=== PATIENT | male | born 1945 | race Caucasian/White ===

== ENCOUNTER 2024-04-04 23:01 | Inpatient (IN) | payer OTHER, SELFPAY ==
[2024-04-04] VITALS (7 sets, daily range): BP systolic 104–171; BP diastolic 62–107; BMI 25.8; BMI 27.3
[2024-04-04 18:14] LABS: % Basophils 0.1 % (0-2); % Eosinophils 0.1 % (0-6); % Immature Granulocytes 0.4 % (0-0.5); % Lymphocytes 5.2 % (20.5-51.1); % Monocytes 12.5 % (1.7-9.3); % Neutrophils 81.7 % (42.2-75.2); Absolute Immature Granulocytes 0.1 10^3/uL (0-0.05); Absolute Lymphocytes 0.8 10^3/uL (1.2-3.4); Absolute Monocytes 1.9 10^3/uL (0.1-0.6); Absolute Neutrophils 12.7 10^3/uL (1.4-6.5); Hematocrit 44.5 % (39.0-52.0); Hemoglobin 15.2 g/dL (13.0-18.0); Mean Corp Hgb Conc. 34.2 g/dL (33.0-37.0); Mean Corpuscular Hgb 30.2 pg (27.0-31.0); Mean Corpuscular Volume 88.3 fL (80.0-94.0); Mean Platelet Volume 10.6 fL (7.4-10.4); Nucleated Red Blood Cells % 0 % (-); Platelet Count 240 10^3/uL (130-400); Red Blood Cell Count 5.04 10^6/uL (4.70-6.10); Red Cell Dist. Width 15.5 % (11.5-14.5); White Blood Cell Count 15.6 10^3/uL (4.8-10.8)
[2024-04-04 18:25] LABS: ALT (SGPT) 23 U/L (0-50); AST (SGOT) 31 U/L (17-59); Albumin 4.3 g/dl (3.5-5.0); Alkaline Phosphatase 164 U/L (38-126); Blood Urea Nitrogen 22 mg/dl (9-20); Calcium 9.8 mg/dl (8.4-10.2); Carbon Dioxide 25 mmol/L (22-30); Chloride 94 mmol/L (98-107); Estimated Creatinine Clearance 62 ml/min; Glucose 103 mg/dl (70-99); Potassium 3.2 mmol/L (3.5-5.1); Sodium 132 mmol/L (135-145); Total Bilirubin 2.9 mg/dl (0.2-1.3); eGFR > 60.00
[2024-04-04 18:36] LABS: Troponin I < 0.012 ng/ml
[2024-04-04] MEDS: KCL 40 MEQ PO (19:30)
[2024-04-04] MEDS: NSS 1000 IV (19:30)
[2024-04-04] MEDS: MAGNESIUM SULFATE 50 IV (19:31)
[2024-04-04 20:11] LABS: NT-proBNP 2840 pg/ml
--- NOTE | 2024-04-04 20:42 | ED.GENMED ---
History of Present Illness
<Agusto Jones PA-C - Last Filed: 04/06/24 09:08>
General
Chief Complaint: Fall
Time Seen by Provider: 04/04/24 18:29
Travel History
Have you had any contact with someone who has COVID-19?: No
Do you have any symptoms of coronavirus? Fever > 100 degrees, chills, cough, shortness of breath, sore throat, loss of taste or smell, muscle aches, or headache?: No
History of Present Illness
History of Present Illness:
79-year-old male with history of prior stroke, hypertension, hyperlipidemia, and paroxysmal atrial fibrillation status post Watchman device presents to the emergency department for evaluation after a fall in the shower. She states that he felt
dizzy after straining to try to have a bowel movement when he fell to the ground. He did strike the occiput on the ground but there was no loss of consciousness. Currently reports constipation for the past several days and abdominal discomfort.
Denies any recent fevers or chills. He has been compliant with his home medications.
Review of Systems
<Agusto Jones PA-C - Last Filed: 04/06/24 09:08>
Review of Systems
Allergies reviewed?: Yes
All Other Systems: ROS reviewed and negative except as documented in HPI and ROS
Phy Exam
<Agusto Jones PA-C - Last Filed: 04/06/24 09:08>
Physical Exam
Physical Exam:
GEN: Well appearing, NAD, WDWN
Eyes: PERRLA, EOMs intact, no scleral icterus
HENT: NCAT, oral mucosa moist, no JVD, no cervical adenopathy.
Lungs: CTAB, no wheezes, rales, rhonchi, normal chest wall excursion
Cardiac: RRR, no M/R/G, no peripheral edema. Radial pulses 2+ bilat
Abdomen: Mild suprapubic distention noted. Focal tenderness to the suprapubic region as well as the right upper quadrant
Neuro: AO x 3, no focal deficits to BUE/BLE, normal sensation throughout
MSK: No gross deformity or ecchymosis. No edema. No digital clubbing
Skin: No rashes, petechiae. Normal color, no pallor or jaundice.
Psych: Calm, cooperative, proper hygiene
Course
<Agusto Jones PA-C - Last Filed: 04/06/24 09:08>
Orders/Labs/Results
Orders:
Orders
04/04/24 17:59
EKG [Electrocardiogram (*1)] Urgent
Reason for Study: Tachycardia
04/04/24 18:00
EKG- Treatment ONCE
04/04/24 18:05
Complete Blood Count/With Diff Urgent
Comprehensive Metabolic Panel Urgent
Lipase Urgent
Comment: ADD ON
NT-proBNP Urgent
Troponin I Urgent
04/04/24 18:47
CT Head W/o Iv Contrast Urgent
Comment:
Reason For Exam: fall head injury
04/04/24 19:18
Potassium Chloride [KCl] 40 meq PO NOW STA
04/04/24 19:19
Magnesium Sulfate 2 Gram/50 ml [Magnesium Sulfate] 2 gram in 50 ml IV NOW
04/04/24 19:30
0.9% Sodium Chloride 1000 ml [Nss] 1,000 ml IV BOLUS
04/04/24 20:33
UA Reflex to Culture [Urinalysis Reflex To Culture] Urgent
Date Specimen was Collected: 04/04/24
Time Specimen was Collected: 20:31
04/04/24 20:34
CT Abd/Pel (IV only)-DH only Urgent
Comment:
Reason For Exam: abd pain, transaminitis, tachycardia
04/04/24 20:45
Magnesium Citrate [Citroma] 300 ml PO ONCE ONE
04/04/24 22:01
Piperacillin/Tazo 3.375 Gram [Zosyn] 3.375 gram in 50 ml IV NOW
04/04/24 22:32
Admit/Transfer Patient As Directed
Co-Sign Provider:
Level of Care: Inpatient admission
Assign to:: Telemetry
Physician / Group: sean
Diagnosis: cholecystitis
Reason for Telemetry: Arrhythmia
Date to Stop Telemetry: 04/07/24
Time to Stop Telemetry: 11:00
Reason for Hospitalization: cholecystitis
Expected length of stay greater than two midnights?: Yes
ELOS- Estimated Length of Stay in days: 3
I certify the patient meets the requirements for IP care: Yes
04/04/24 22:33
Code Status As Directed
Resuscitation Status: Do not resuscitate
Reached after discussion with pt or family/Healthcare POA: Yes
04/04/24 22:34
DNR Bracelet Application ONCE
04/04/24 22:42
Add On- LAB Stat
Tests Added?: lipase
04/04/24 23:53
Acetaminophen [Tylenol] 650 mg PO Q4HPRN PRN
Bisacodyl [Dulcolax] 10 mg RECTAL [id number] PRN
Docusate W/Senna [Senokot-S] 1 tablet PO BIDPRN PRN
HYDROmorphone [Dilaudid] 0.5 mg IV Q4HPRN PRN
Lactated Ringers [Lr] 1,000 ml IV 80 mls/hr
Metoprolol [Lopressor] 5 mg IV Q6HPRN PRN
Polyethylene Glycol Powder [Miralax] 17 grams PO DAILYPRN PRN
04/04/24 23:53
Consult Notification Routine
Specialty to Notify: Gastroenterology
Date consulting provider notified: 04/05/24
Time consulting provider notified: 07:18
Notified:: Provider
Comment: TT
GASTROINTESTINAL CONSULT Routine
Consulting Provider: Ayan Decker
Was physician already notified: No
Reason for consult: pancreatic mass
SURGICAL CONSULT Routine
Consulting Provider: Luis West
Was physician already notified: Yes
Vascular Surgery Consult Routine
Consulting Provider: Millie Lopez
Was physician already notified: Yes
Urinalysis Reflex To Culture Routine
Date Specimen was Collected: 04/05/24
Time Specimen was Collected: 04:53
Pneumatic Compression Sleeves As Directed
Type: Knee high
Vital Signs As Directed
Frequency: Per unit guidelines
DX Deep Vein Thrombosis Video Routine
04/05/24 04:00
Piperacillin/Tazo 3.375 Gram [Zosyn] 3.375 gram in 50 ml IV Q6H
04/05/24 Breakfast
NPO
Allow oral meds: Yes
Allow clear liquids: No
Physical Therapy Consult [Pt Eval And Treat] IN AM
Activity Level: As Tolerated
US Abdomen Complete/Upper IN AM
Comment:
Reason For Exam: abdominal pain
04/05/24 08:00
Aspirin Low Dose EC [Aspir Low (Enteric Coated)] 81 mg PO DAILY
Metoprolol [Lopressor] 50 mg PO BID
04/05/24 08:47
Complete Blood Count/No Diff IN AM
Comprehensive Metabolic Panel IN AM
04/05/24 18:00
Atorvastatin [Lipitor] 80 mg PO QPM
04/06/24 06:27
Complete Blood Count/No Diff IN AM
04/06/24 06:28
Comprehensive Metabolic Panel IN AM
04/07/24 06:00
Complete Blood Count/No Diff IN AM
Comprehensive Metabolic Panel IN AM
04/07/24 11:00
DC Protocol for Telemetry ONCE
04/08/24 06:00
Complete Blood Count/No Diff IN AM
Comprehensive Metabolic Panel IN AM
04/09/24 06:00
Complete Blood Count/No Diff IN AM
Comprehensive Metabolic Panel IN AM
Abnormal Lab Results
04/04/24
18:05
WBC 15.6 H 10^3/uL
(4.8-10.8)
RDW 15.5 H %
(11.5-14.5)
MPV 10.6 H fL
(7.4-10.4)
Abs Immat Gran (auto) 0.1 H 10^3/uL
(0-0.05)
Absolute Neuts (auto) 12.7 H 10^3/uL
(1.4-6.5)
Absolute Lymphs (auto) 0.8 L 10^3/uL
(1.2-3.4)
Absolute Monos (auto) 1.9 H 10^3/uL
(0.1-0.6)
Neutrophils % 81.7 H %
(42.2-75.2)
Lymphocytes % 5.2 L %
(20.5-51.1)
Monocytes % 12.5 H %
(1.7-9.3)
Sodium 132 L mmol/L
(135-145)
Potassium 3.2 L mmol/L
(3.5-5.1)
Chloride 94 L mmol/L
(98-107)
BUN 22 H mg/dl
(9-20)
Glucose 103 H mg/dl
(70-99)
Total Bilirubin 2.9 H mg/dl
(0.2-1.3)
Alkaline Phosphatase 164 H U/L
(38-126)
04/04/24 18:05
04/04/24 18:05
Vital Signs
Initial and Last Documented VS:
Initial Vital Signs
Temp Pulse Resp BP Pulse Ox
99.5 F 120 20 113/77 97
04/04/24 17:51 04/04/24 17:51 04/04/24 17:51 04/04/24 17:51 04/04/24 17:51
Last Documented Vital Signs
Temp Pulse Resp BP Pulse Ox
98 F 100 16 145/105 94
04/06/24 07:00 04/06/24 07:00 04/06/24 07:00 04/06/24 07:00 04/06/24 07:00
<LUIS ANGEL Sagastume - Last Filed: 04/04/24 22:05>
Orders/Labs/Results
Orders:
Orders
04/04/24 17:59
EKG [Electrocardiogram (*1)] Urgent
Reason for Study: Tachycardia
04/04/24 18:00
EKG- Treatment ONCE
04/04/24 18:05
Complete Blood Count/With Diff Urgent
Comprehensive Metabolic Panel Urgent
Lipase Urgent
Comment: ADD ON
NT-proBNP Urgent
Troponin I Urgent
04/04/24 18:47
CT Head W/o Iv Contrast Urgent
Comment:
Reason For Exam: fall head injury
04/04/24 19:18
Potassium Chloride [KCl] 40 meq PO NOW STA
04/04/24 19:19
Magnesium Sulfate 2 Gram/50 ml [Magnesium Sulfate] 2 gram in 50 ml IV NOW
04/04/24 19:30
0.9% Sodium Chloride 1000 ml [Nss] 1,000 ml IV BOLUS
04/04/24 20:33
UA Reflex to Culture [Urinalysis Reflex To Culture] Urgent
Date Specimen was Collected: 04/04/24
Time Specimen was Collected: 20:31
04/04/24 20:34
CT Abd/Pel (IV only)-DH only Urgent
Comment:
Reason For Exam: abd pain, transaminitis, tachycardia
04/04/24 20:45
Magnesium Citrate [Citroma] 300 ml PO ONCE ONE
04/04/24 22:01
Piperacillin/Tazo 3.375 Gram [Zosyn] 3.375 gram in 50 ml IV NOW
04/04/24 22:32
Admit/Transfer Patient As Directed
Co-Sign Provider:
Level of Care: Inpatient admission
Assign to:: Telemetry
Physician / Group: sean
Diagnosis: cholecystitis
Reason for Telemetry: Arrhythmia
Date to Stop Telemetry: 04/07/24
Time to Stop Telemetry: 11:00
Reason for Hospitalization: cholecystitis
Expected length of stay greater than two midnights?: Yes
ELOS- Estimated Length of Stay in days: 3
I certify the patient meets the requirements for IP care: Yes
04/04/24 22:33
Code Status As Directed
Resuscitation Status: Do not resuscitate
Reached after discussion with pt or family/Healthcare POA: Yes
04/04/24 22:34
DNR Bracelet Application ONCE
04/04/24 22:42
Add On- LAB Stat
Tests Added?: lipase
04/04/24 23:53
Acetaminophen [Tylenol] 650 mg PO Q4HPRN PRN
Bisacodyl [Dulcolax] 10 mg RECTAL [id number] PRN
Docusate W/Senna [Senokot-S] 1 tablet PO BIDPRN PRN
HYDROmorphone [Dilaudid] 0.5 mg IV Q4HPRN PRN
Lactated Ringers [Lr] 1,000 ml IV 80 mls/hr
Metoprolol [Lopressor] 5 mg IV Q6HPRN PRN
Polyethylene Glycol Powder [Miralax] 17 grams PO DAILYPRN PRN
04/04/24 23:53
Consult Notification Routine
Specialty to Notify: Gastroenterology
Date consulting provider notified: 04/05/24
Time consulting provider notified: 07:18
Notified:: Provider
Comment: TT
GASTROINTESTINAL CONSULT Routine
Consulting Provider: Ayan Decker
Was physician already notified: No
Reason for consult: pancreatic mass
SURGICAL CONSULT Routine
Consulting Provider: Luis West
Was physician already notified: Yes
Vascular Surgery Consult Routine
Consulting Provider: Millie Lopez
Was physician already notified: Yes
Urinalysis Reflex To Culture Routine
Date Specimen was Collected: 04/05/24
Time Specimen was Collected: 04:53
Pneumatic Compression Sleeves As Directed
Type: Knee high
Vital Signs As Directed
Frequency: Per unit guidelines
DX Deep Vein Thrombosis Video Routine
04/05/24 04:00
Piperacillin/Tazo 3.375 Gram [Zosyn] 3.375 gram in 50 ml IV Q6H
04/05/24 Breakfast
NPO
Allow oral meds: Yes
Allow clear liquids: No
Physical Therapy Consult [Pt Eval And Treat] IN AM
Activity Level: As Tolerated
US Abdomen Complete/Upper IN AM
Comment:
Reason For Exam: abdominal pain
04/05/24 08:00
Aspirin Low Dose EC [Aspir Low (Enteric Coated)] 81 mg PO DAILY
Metoprolol [Lopressor] 50 mg PO BID
04/05/24 08:47
Complete Blood Count/No Diff IN AM
Comprehensive Metabolic Panel IN AM
04/05/24 18:00
Atorvastatin [Lipitor] 80 mg PO QPM
04/06/24 06:27
Complete Blood Count/No Diff IN AM
04/06/24 06:28
Comprehensive Metabolic Panel IN AM
04/07/24 06:00
Complete Blood Count/No Diff IN AM
Comprehensive Metabolic Panel IN AM
04/07/24 11:00
DC Protocol for Telemetry ONCE
04/08/24 06:00
Complete Blood Count/No Diff IN AM
Comprehensive Metabolic Panel IN AM
04/09/24 06:00
Complete Blood Count/No Diff IN AM
Comprehensive Metabolic Panel IN AM
Abnormal Lab Results
04/04/24
18:05
WBC 15.6 H 10^3/uL
(4.8-10.8)
RDW 15.5 H %
(11.5-14.5)
MPV 10.6 H fL
(7.4-10.4)
Abs Immat Gran (auto) 0.1 H 10^3/uL
(0-0.05)
Absolute Neuts (auto) 12.7 H 10^3/uL
(1.4-6.5)
Absolute Lymphs (auto) 0.8 L 10^3/uL
(1.2-3.4)
Absolute Monos (auto) 1.9 H 10^3/uL
(0.1-0.6)
Neutrophils % 81.7 H %
(42.2-75.2)
Lymphocytes % 5.2 L %
(20.5-51.1)
Monocytes % 12.5 H %
(1.7-9.3)
Sodium 132 L mmol/L
(135-145)
Potassium 3.2 L mmol/L
(3.5-5.1)
Chloride 94 L mmol/L
(98-107)
BUN 22 H mg/dl
(9-20)
Glucose 103 H mg/dl
(70-99)
Total Bilirubin 2.9 H mg/dl
(0.2-1.3)
Alkaline Phosphatase 164 H U/L
(38-126)
04/04/24 18:05
04/04/24 18:05
Vital Signs
Initial and Last Documented VS:
Initial Vital Signs
Temp Pulse Resp BP Pulse Ox
99.5 F 120 20 113/77 97
04/04/24 17:51 04/04/24 17:51 04/04/24 17:51 04/04/24 17:51 04/04/24 17:51
Last Documented Vital Signs
Temp Pulse Resp BP Pulse Ox
98 F 100 16 145/105 94
04/06/24 07:00 04/06/24 07:00 04/06/24 07:00 04/06/24 07:00 04/06/24 07:00
<Agusto Jones PA-C - Last Filed: 04/06/24 09:08>
MDM/Problems Addressed
MDM/Problems Addressed:
79-year-old male presenting after a fall. His dizziness was likely vasovagal as he was trying to bear down to have a bowel movement. He has noted to be tachycardic in atrial fibrillation, not on anticoagulants due to prior Watchman procedure. He
is noted to also have leukocytosis and transaminitis of unclear etiology and the patient does not know whether this is chronic for him, all of his prior care is at [facility]. Required straight cath urinalysis due to mild urinary retention. Unclear
etiology to leukocytosis. Due to presence of upper abdominal pain will send for imaging. Will sign out to Nubia Adames NP pending imaging
<LUIS ANGEL Sagastume - Last Filed: 04/04/24 22:05>
MDM/Problems Addressed
MDM/Problems Addressed:
79-year-old male presenting after a fall. His dizziness was likely vasovagal as he was trying to bear down to have a bowel movement. He has noted to be tachycardic in atrial fibrillation, not on anticoagulants due to prior Watchman procedure. He
is noted to also have leukocytosis and transaminitis of unclear etiology and the patient does not know whether this is chronic for him, all of his prior care is at [facility]. Required straight cath urinalysis due to mild urinary retention. Unclear
etiology to leukocytosis. Due to presence of upper abdominal pain will send for imaging. Will sign out to Nubia Adames NP pending imaging.
2201: CAT scan shows cholelithiasis acute cholecystitis no bile duct dilatation no ascites no focal collection or abscess IV Zosyn ordered. Surgery and hospitalist made aware
<LUIS ANGEL Sagastume - Last Filed: 04/04/24 22:05>
*Critical Care Note
Total Time (30-74mins, 75-104mins- exclusive of procedures): Not Applicable
<LUIS ANGEL Sagastume - Last Filed: 04/04/24 22:05>
Patient Management
Discussion with other providers: Supercalender Operator Helper (DR West surg )
ED Attending Note
<Agusto Jones PA-C - Last Filed: 04/06/24 09:08>
-
Portions of this chart may have been created with voice recognition software.� Occasional wrong word or��sound alike� substitutions may have occurred due to the inherent limitations of voice recognition software.
Discharge Plan
Departure
Patient Disposition: Admit
Date of Disposition: 04/04/24
Time of Disposition: 22:03
Admit to: Med/Surg
Presentation/result/management discussed w/ accepting MD/DO: Hospitalist
Patient with high blood pressure during this ER visit?: Yes
Condition: Fair
Covid-19: Not Applicable
Discharge Problem:
Acute cholecystitis, Atrial fibrillation
Interventions
Interventions:
*General Assessment Last Done: 04/04/24 17:51
*Neglect/Abuse Screening Last Done: 04/04/24 17:51
ED- Fall Risk Assessment Last Done: 04/04/24 23:40
*Nursing Disposition Last Done: 04/04/24 23:19
ED-Musculoskeletal Assessment Last Done: 04/04/24 18:01
ED- Neurological Assessment Last Done: 04/04/24 18:01
ED-Skin Assessment Last Done: 04/04/24 18:01
Discharge Date and Time
Discharge Date/Time: 04/04/24 23:40
[2024-04-04 20:51] LABS: Urine Albumin Trace (Neg - Trace); Urine Bilirubin Negative (Negative); Urine Character Clear (Clear); Urine Color Yellow; Urine Glucose Negative (Negative); Urine Ketone Negative (Negative); Urine Leukocyte Negative (Negative); Urine Nitrite Negative (Negative); Urine Occult Blood Negative (Negative); Urine Urobilinogen Negative (Neg - 1+)
--- NOTE | 2024-04-04 22:03 | HPS.HSE ---
Addendum entered and electronically signed by Bruce Navarrete DO 04/04/24 23:19:
Patient seen and examined independently. Agree with findings and plan as set forth by LUIS ANGEL Mast.
Patient is a 79y M with PMH significant for A-Fib, hypertension and prior CVA who presents to ED for evaluation after fall at home. Patient states that he lost his balance while showering and fell to the floor. He landed on his R shoulder and
states that he did strike his head. He denies any LOC. He reports a prodrome of lightheadedness and notes that he had been straining to try and move his bowels for almost an hour before standing to shower. Patient was unable to get up unassisted
after the fall and EMS was called.
On evaluation in the ED, patient complained of abdominal pain which he notes has been present for about 3 days. Patient recently returned home from a cruise to [facility] (Monday). He went out for dinner on Monday. He woke on Monday with some vague
abdominal discomfort. His last BM was Monday and was normal at that time. He has been straining to have a BM unsuccessfully since then and feeling progressively more bloated / abdominal pain.
Given his abdominal discomfort, CT was done in the ED which had multiple abnormalities.
Patient denies any N/V, fevers chills, etc.
Ass:
Abdominal Pain
Cholelithiasis +/- Acute Cholecystitis
Pancreatic Head Mass
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
Constipation
Fall at Home
Hyponatremia / Hypokalemia - Mild
Atrial Fibrillation - Unknown Type - s/p Watchman device
Prior CVA (January 2023)
Benign Hypertension
Plan:
Admit for further evaluation and treatment.
CT with multiple imaging abnormalities that will require additional evaluation.
IV abx for now for possible cholecystitis.
Check abdominal US in the AM for additional evaluation of biliary system, abdominal aorta, etc.
General and Vascular Surgery consults.
NPO, IVF support, pain control, etc.
GI evaluation for pancreatic lesion - ? MRCP / ERCP for further evaluation.
Continue metoprolol / PRN Lopressor for impulse control and A-Fib rate control.
Not on chronic anticoagulation s/p Watchman device.
Follow for clinical changes / improvement.
Will likely benefit from eventual cholecystectomy - depending on results of additional work-up.
Original Note:
Family Physician
-
Family Physician: David Mena
Chief Complaint
-
abdominal pain, constipation
History of Present Illness
79-year-old male with history of prior stroke, hypertension, hyperlipidemia, and paroxysmal atrial fibrillation status post Watchman device presents to the emergency department for evaluation after a fall in the shower. Patient stated abdominal
pain associate with constipation since Monday. Patient and his family were on a cruise for a week. They came home on Monday. Patient was feeling better on Monday and Monday. Monday evening out for dinner. Monday morning he woke up with
abdominal pain. Patient stated no bowel movement since then. He was taking stool softeners, MiraLAX, suppository with no relief in his symptoms. Today he was sitting on the toilet for an hour to have bowel movement, after that he went to take
shower. He felt dizzy and lightheaded and fell in the shower. He hit his back of his head and right shoulder on the floor. Very poor appetite. Patient denied nausea vomiting. Patient denied any headache. Patient denied any chest pain or short
of breath. Patient denied dysuria hematuria.
CT abdomen pelvis with impression of Cholelithiasis. Acute cholecystitis. No bile duct dilatation. Mild ascites. No focal collection or abscess.
Homogeneous hypervascular solid mass in the pancreatic head measuring 2.1 x 1.4 cm. Possible considerations include solid pseudopapillary tumor, solid serous cystadenoma, pancreatic acinar cell carcinoma, or neuroendocrine tumor.
Findings suspicious for mild small bowel ileus.
Incidental distal aortic dissection measuring approximately 4 cm in length just above the bifurcation with associated mild ectasia measuring 2.8 cm transverse.
Patient received dose of Zosyn in ER. Patient also received magnesium citrate, mag rider and KCl in ER. Admitting for further management
Medical History
Past Medical History
Past Medical History: Reports Other
Additional Past Medical History:
CVA
Hypertension
Hyperlipidemia
Atrial fibs
Past Surgical History: Reports Other
Additional Past Surgical History:
Watchman procedure
Left knee replacement
Social History
Tobacco: Non-smoker
Alcohol: None
Drug: None
Personal:
Living: With Family
Family History
Family History: Not pertinent
Allergies / Home Medications
Allergies reflects when Allergies were last updated in [facility].
Home Medications with original date entered in [facility]
Allergy/Medication List:
Allergies
Allergy/AdvReac Type Severity Reaction Status Date / Time
No Known Allergies Allergy Verified 04/04/24 18:52
Home Medications
aspirin 81 mg tablet,delayed release 81 mg PO DAILY 04/04/24
atorvastatin 80 mg tablet 80 mg PO QPM 04/04/24
hydrochlorothiazide 25 mg tablet 25 mg PO DAILY 04/04/24
lisinopril 20 mg tablet 20 mg PO BID 04/04/24
metoprolol tartrate 50 mg tablet 50 mg PO BID 04/04/24
Review of Systems
-
Constitutional: Reports No Symptoms
EENT: Reports No Symptoms
Respiratory: Reports No Symptoms
Cardiac: Reports No Symptoms
Abdomen/GI: Reports Abdominal Pain and Constipated
: Reports No Symptoms
Musculoskeletal: Reports No Symptoms
Skin: Reports No Symptoms
Neurological: Reports No Symptoms
Endocrine: Reports No Symptoms
Hematologic/Lymphatic: Reports No Symptoms
Psych: Reports No Symptoms
Physical Exam
Vital Signs
Vital Signs
Temp Pulse Resp BP Pulse Ox
99.5 F 107 21 147/90 96
04/04/24 17:51 04/04/24 21:45 04/04/24 21:45 04/04/24 21:35 04/04/24 21:45
Physical Exam
General: Well Developed, Well Nourished and No Apparent Distress
HEENT: NormoCephalic, Moist mucous membranes and Atraumatic
Respiratory: Clear
Cardiac: S1/S2 and Regular Rhythm; No Murmur or Rub
GI: Soft, Tender and Distended; No Organomegaly
Rectal: Deferred by Provider
Musculoskeletal: No Clubbing, No Cyanosis and No Edema
Skin: No Rash
Neuro: Nonfocal/grossly intact
Laboratory Results
-
04/04/24 18:05
04/04/24 18:05
Laboratory Results
Total Bilirubin 2.9 mg/dl (0.2-1.3) H 04/04/24 18:05
AST 31 U/L (17-59) 04/04/24 18:05
ALT 23 U/L (0-50) 04/04/24 18:05
Alkaline Phosphatase 164 U/L (38-126) H 04/04/24 18:05
Troponin I < 0.012 ng/ml 04/04/24 18:05
Data Reviewed
-
Diagnostic Radiology: Report Reviewed by me
CT Scan: Report Reviewed by me
Lab Data: Labs Reviewed by me
Impression/Plan
-
#abdominal pain/constipation likely from acute cholecystitis/solid mass in the pancreatic head/small bowel ileus
-wbc 15.6, bili 2.9
-Lipase added
-obtain US of abdomen in AM
-keep NPO
-fluids continued for hydration
-surgery consulted
-Dilaudid prn for pain
-CT abdomen pelvis with Cholelithiasis. Acute cholecystitis. No bile duct dilatation. Mild ascites. No focal collection or abscess.Homogeneous hypervascular solid mass in the pancreatic head measuring 2.1 x 1.4 cm. Possible considerations include
solid pseudopapillary tumor, solid serous cystadenoma, pancreatic acinar cell carcinoma, or neuroendocrine tumor.Findings suspicious for mild small bowel ileus.Incidental distal aortic dissection measuring approximately 4 cm in length just above the
bifurcation with associated mild ectasia measuring 2.8 cm transverse.
-GI consulted
# Distal aortic dissection
-vascular consulted consulted
#fall/dizzy likely vasovagal
-PT/OT consulted
-head CT with No acute intracranial hemorrhage. No extra axial collection. No skull fracture.Moderate to advanced chronic microvascular white matter ischemic changes.Mild to moderate central greater than cortical atrophy.
#hyponatremia/hypokalemia likely from poor oral intake/dehydration
-na 132,k 3.2
-Oral KCl in ER
-fluids continued
-Monitor BMP in a.m.
#afib with RVR
-EKG with atrial fib with RVR
-At present heart rate controlled
-Status post Watchman procedure
-Metoprolol continued
# Essential hypertension
-Hold HCTZ due to low sodium and low potassium
-Lisinopril held
-Lopressor prn for HTN
# Hyperlipidemia
-Statin continued
# DVT prophylaxis
-SCD
# CODE STATUS
-DNR
please call phone number with updates:[phone]
[2024-04-04] MEDS: ZOSYN 50 IV (22:48)
[2024-04-04 23:15] LABS: Lipase 40 U/L (23-300)
--- NOTE | 2024-04-04 23:50 | PTCARENOTE ---
Pt arrived to unit from ED and ambulated with x1 assist standby from stretcher to bed. Pt is AAOx3, reports severe pain in right abdomen extending to left abdomen when moving but mild pain in the same areas when at rest. BP on admission 171/107,
pt reporting severe pain at this time. PRN Tylenol provided to pt, will continue to monitor BP and pain level. Pt oriented to room, call hnana within reach.
[2024-04-05] VITALS (20 sets, daily range): BP systolic 30–164; BP diastolic 79–106; BMI 27.3
[2024-04-05] MEDS: LR 1000 IV ×2 (01:22→13:11)
[2024-04-05] MEDS: TYLENOL 650 MG PO (01:24)
[2024-04-05] MEDS: ZOSYN 50 IV ×3 (04:22→21:06)
[2024-04-05 05:03] LABS: Urine Albumin Trace (Neg - Trace); Urine Bilirubin Negative (Negative); Urine Character Clear (Clear); Urine Color Yellow; Urine Glucose Negative (Negative); Urine Ketone Negative (Negative); Urine Leukocyte Negative (Negative); Urine Nitrite Negative (Negative); Urine Occult Blood 1+ (Negative); Urine Urobilinogen Negative (Neg - 1+)
--- NOTE | 2024-04-05 05:19 | PTCARENOTE ---
Pt attempted to use urinal to void but was unsuccessful. This RN bladder scanned pt for 407 mL. [place] [employer] Gabi Peng notified and ordered bladder scan and straight cath per protocol. This RN straight cath'd pt for 425 mL mann urine.
Urinalysis sent to lab.
[2024-04-05 05:35] LABS: Urine Bacteria Few (Negative); Urine Squamous Cell 0-2 /LPF (Few); Urine White Cell 0-2 /HPF (0-5)
--- NOTE | 2024-04-05 06:28 | W.PN.UPDATE ---
Update Note
Progress Note Update
Seen and examined with APICULTURE TEACHER's. Full consultation to follow. Briefly, 79-year-old male who presents status post fall. Abdominal pain mostly in the right lower quadrant. Notes he feels gassy.
Cardiovascular risk factors include history of tobacco use but quit 30 years ago. Only smoked for about 15 years. Denies any lower extremity claudication.
On exam he is awake and alert. Abdomen is soft, nondistended, mildly diffusely tender. No peritoneal signs. Lower extremity with 2+ femoral and popliteal pulses palpable bilaterally. Right side with 2+ PT pulse palpable. I difficulty palpating
left pedal pulse. Feet are both warm and pink and well-perfused, no rubor, no ulcerations.
Incidental CT scan finding of focal distal infrarenal abdominal aortic dissection with mild ectasia. CT scan reviewed. Focal likely plaque related dissection limited only to the distal infrarenal aorta in the vicinity of the MELISSA origin.
Normalization of the flow lumen noted in the very distal infrarenal aorta at the vicinity of the bifurcation. Does not appear to cause any flow limitation. Appears chronic in nature based on calcification seen in the septum as well as the entirety
of the aortic wall. Mild dilation of the aorta in that vicinity measuring 2.8 cm in maximal transverse dimension.
Plan/
1) Incidental finding of mild aortic ectasia and focal dissection plaque related. No intervention or further workup needed at this point. Would recommend atherosclerotic risk factor control based on moderate atherosclerosis in the abdominal aorta.
Can follow-up in the office in 6 months with surveillance ultrasound imaging. If stable, will transition to every 1 to 2-year follow-up surveillance imaging.
2) PAD - atherosclerotic findings on CT imaging. In addition I had difficulty palpating pedal pulses left side. May have some evidence of peripheral arterial disease though not definitively. Will obtain outpatient noninvasive lower extremity
arterial imaging studies as baseline/screening. I will see him back following that within the next month or 2.
--- NOTE | 2024-04-05 07:33 | CON.GS ---
Medical History
-
Chief Complaint: Abdominal pain
History of Present Illness:
Patient is a 79 yo M with a PMH of HTN, HLD, A-fib (s/p Watchman procedure, no anticoagulation), CVA in 01/2023, and s/p knee replacement [address] Alcaraz. Mr. Khan presented to the ER following a vasovagal episode and fell in the shower.
History is somewhat limited and difficult to discern based on patient's recollections. He states that he has had abdominal discomfort for the past week which he has attributed to constipation. He has had issues with passing flatus and a bowel
movement. He denies any clear history of postprandial pain, nausea, or vomiting. He denies any fevers or chills. No jaundice, pale stools, or tea colored urine. He denies any prior knowledge of cholelithiasis or a pancreatic mass. He receives
the majority of his care at [facility]. He denies any leg pain, CP or SOB.
Past Medical History
Past Medical History: Arrhythmias (Afib), CVA, HTN, Hypercholesterolemia and Valvular Disease
Past Surgical History: Orthopedic (Knee replacement)
Social History
Tobacco: Non-Smoker
Alcohol: None
Drug: None
Personal:
Living: With Family
Family History
Family History: Reviewed & Noncontributory
Allergies / Home Medications
Allergy/AdvReac Type Severity Reaction Status Date / Time
No Known Allergies Allergy Verified 04/04/24 18:52
�Medication �Instructions �Recorded �Confirmed �Type
aspirin 81 mg tablet,delayed 81 mg PO DAILY 04/04/24 04/04/24 History
release
atorvastatin 80 mg tablet 80 mg PO QPM 04/04/24 04/04/24 History
hydrochlorothiazide 25 mg tablet 25 mg PO DAILY 04/04/24 04/04/24 History
lisinopril 20 mg tablet 20 mg PO BID 04/04/24 04/04/24 History
metoprolol tartrate 50 mg tablet 50 mg PO BID 04/04/24 04/04/24 History
Review of Systems
-
A 10 point review of systems was completed, and was negative except as per HPI.
Physical Exam
Vital Signs
Temp Pulse Resp BP Pulse Ox
97.9 F 99 18 133/80 98
04/05/24 03:49 04/05/24 03:49 04/05/24 03:49 04/05/24 03:49 04/05/24 03:49
04/04/24 04/05/24 04/06/24
06:59 06:59 06:59
Actual Weight 86.239 kg
Body Mass Index (BMI) 27.3
Lab Results
WBC 15.6 10^3/uL (4.8-10.8) H 04/04/24 18:05
Hgb 15.2 g/dL (13.0-18.0) 04/04/24 18:05
Hct 44.5 % (39.0-52.0) 04/04/24 18:05
Plt Count 240 10^3/uL (130-400) 04/04/24 18:05
Abs Immat Gran (auto) 0.1 10^3/uL (0-0.05) H 04/04/24 18:05
Neutrophils % 81.7 % (42.2-75.2) H 04/04/24 18:05
Physical Exam
General: Well Developed, Well Nourished and No Apparent Distress
HEENT: Normocephalic and Scleral Icterus
Respiratory: Non Labored Respirations
Cardiac: Irregular Rhythm
GI: Soft, Non Distended, Tender (RUQ, positive Jimenez's sign) and Other (Non-peritoneal)
Musculoskeletal: No Edema
Skin: Warm and Dry
Neuro: AO x 3
Data Reviewed
-
CT Scan: Image Personally Visualized and interpreted and Report Reviewed by me
Labs: Labs Reviewed by me
Assessment / Plan
-
Patient is a 79 yo M p/w acute calculus cholecystitis
Diagnosis and management complicated by findings of a pancreatic head mass, as well as an aortic dissection measuring approximately 4 cm in length just above the iliac bifurcation. At this point in time given his CT scan findings and focal pain
within the RUQ with a positive Jimenez's sign, it is unlikely that MRI imaging or further workup of his pancreatic head mass will significantly alter the decision to manage his gallbladder and may lead to complicating and already more difficult
gallbladder by delaying intervention. We discussed the possibility of finding cancerous spread of his pancreatic head mass which may preclude safely performing a cholecystectomy. Patient agrees with proceeding with surgical intervention.
Of note, Vacular Surgery evaluation with no evidence of PVD or clinical significant of his dissection. Plan for outpatient follow-up.
Plan for a laparoscopic cholecystectomy with possible cholangiogram. The procedure itself, as well as the risks, benefits, and alternatives was discussed. Specifically, we discussed the risks of bleeding, infection, injury to surrounding
structures (bowel, bile ducts), CBD injury, need for open procedure. We also discussed the possibility of finding carcinomatosis and inability to perform a cholecystectomy. Typical postprocedural recovery including pain management and the 10 to
20% risk of fluctuations in GI function were discussed. All questions answered. Consent signed. Will attempt to contact his to update on plan of care.
-- Laparoscopic cholecystectomy with IOC
-- GI consult noted, will need EUS and evaluation of pancreatic mass, CEA and CA19-9 added to labs
-- NPO, IVF
-- Abx: Zosyn
--- NOTE | 2024-04-05 08:28 | CON.VAS ---
Consultation
Consultation Request
Performing Provider: Terrell
Reason for Consultation: CT finding of dissection
Medical History
-
Chief Complaint: Abdominal pain, constipation
History of Present Illness:
79-year-old male with PMH stroke, hypertension, hyperlipidemia, and afib admitted through the emergency department for evaluation after a fall in the shower. Patient complained of abdominal pain associate with constipation since Monday.
CT abdomen pelvis with impression of Cholelithiasis. Acute cholecystitis. No bile duct dilatation. Mild ascites. No focal collection or abscess.
Homogeneous hypervascular solid mass in the pancreatic head measuring 2.1 x 1.4 cm. Possible considerations include solid pseudopapillary tumor, solid serous cystadenoma, pancreatic acinar cell carcinoma, or neuroendocrine tumor.
Findings suspicious for mild small bowel ileus.
Incidental distal aortic dissection measuring approximately 4 cm in length just above the bifurcation with associated mild ectasia measuring 2.8 cm transverse.
Vascular consult for this incidental finding. Pt seen at bedside this am with Dr Tejada. Pt denies chest pain, upper abdominal pain, sob. Dissection appears chronic with calcium deposits.
Past Medical History
Past Medical History: Arrhythmias, CVA, HTN and Other (Hyperlipidemia)
Past Surgical History: Other (Watchman procedure, Left knee replacement)
Social History
Tobacco: Non-Smoker
Alcohol: None
Drug: None
Personal:
Living: With Family
Family History
Family History: Reviewed & Not Pertinent
Allergies / Home Medications
Allergy/AdvReac Type Severity Reaction Status Date / Time
No Known Allergies Allergy Verified 04/04/24 18:52
�Medication �Instructions �Recorded �Confirmed �Type
aspirin 81 mg tablet,delayed 81 mg PO DAILY 04/04/24 04/04/24 History
release
atorvastatin 80 mg tablet 80 mg PO QPM 04/04/24 04/04/24 History
hydrochlorothiazide 25 mg tablet 25 mg PO DAILY 04/04/24 04/04/24 History
lisinopril 20 mg tablet 20 mg PO BID 04/04/24 04/04/24 History
metoprolol tartrate 50 mg tablet 50 mg PO BID 04/04/24 04/04/24 History
Review of Systems
-
History Source: Patient
All other systems: Negative unless noted
Constitutional: Reports No Symptoms
EENT: Reports No Symptoms
Respiratory: Reports No Symptoms
Cardiac: Reports No Symptoms
Vascular: Denies Leg Pain / Claudication
Abdomen/GI: Reports Abdominal Pain and Constipated
: Reports No Symptoms
Musculoskeletal: Reports No Symptoms
Skin: Reports No Symptoms
Neurological: Reports No Symptoms
Endocrine: Reports No Symptoms
Physical Exam
Vital Signs
Temp Pulse Resp BP Pulse Ox
97.7 F 96 16 130/80 94
04/05/24 07:28 04/05/24 07:28 04/05/24 07:28 04/05/24 07:28 04/05/24 07:28
Lab Results
Troponin I < 0.012 ng/ml 04/04/24 18:05
Ecv-Z-Hfmneovnncp Pept 2840 pg/ml 04/04/24 18:05
Physical Exam
General: No Apparent Distress
HEENT: Normocephalic and Atraumatic
Respiratory: Non Labored Respirations
Cardiac: Negative JVD
Breast: Deferred by me
GI: Tender
Musculoskeletal: No Clubbing, No Cyanosis and No Edema
Skin: Warm
Neuro: Awake, Alert and Oriented
Psych: Calm
Pulses: Bilateral Femoral: +2 and Bilateral Posterior Tibial: +1
Assessment / Plan
-
Plan/
1) Incidental finding of mild aortic ectasia and focal dissection plaque related. No intervention or further workup needed at this point. Would recommend atherosclerotic risk factor control based on moderate atherosclerosis in the abdominal aorta.
Can follow-up in the office in 6 months with surveillance ultrasound imaging. If stable, will transition to every 1 to 2-year follow-up surveillance imaging.
2) PAD - atherosclerotic findings on CT imaging. In addition I had difficulty palpating pedal pulses left side. May have some evidence of peripheral arterial disease though not definitively. Will obtain outpatient noninvasive lower extremity
arterial imaging studies as baseline/screening. I will see him back following that within the next month or 2.
Data Reviewed
-
CT Scan: Discussed with Patient
[2024-04-05] MEDS: ASPIR LOW (ENTERIC COATED) 81 MG PO (08:38)
[2024-04-05] MEDS: LOPRESSOR 50 MG PO ×2 (08:38→20:18)
--- NOTE | 2024-04-05 09:32 | W.SUR.PREOP ---
Pre-Operative Surgical Note
-
I have examined this patient prior to the performance of the scheduled procedure.
The patient's condition is unchanged from the time of the current History and
Physical and the patient is able to undergo the scheduled procedure.
[2024-04-05 09:40] LABS: Hematocrit 40.1 % (39.0-52.0); Hemoglobin 13.6 g/dL (13.0-18.0); Mean Corp Hgb Conc. 33.9 g/dL (33.0-37.0); Mean Corpuscular Hgb 30.2 pg (27.0-31.0); Mean Corpuscular Volume 89.1 fL (80.0-94.0); Mean Platelet Volume 10.6 fL (7.4-10.4); Platelet Count 211 10^3/uL (130-400); Red Cell Dist. Width 15.8 % (11.5-14.5); White Blood Cell Count 11.6 10^3/uL (4.8-10.8)
[2024-04-05 10:14] LABS: ALT (SGPT) 18 U/L (0-50); AST (SGOT) 27 U/L (17-59); Albumin 3.4 g/dl (3.5-5.0); Alkaline Phosphatase 155 U/L (38-126); Blood Urea Nitrogen 22 mg/dl (9-20); Calcium 8.8 mg/dl (8.4-10.2); Carbon Dioxide 30 mmol/L (22-30); Chloride 99 mmol/L (98-107); Estimated Creatinine Clearance 62 ml/min; Glucose 65 mg/dl (70-99); Sodium 136 mmol/L (135-145); Total Bilirubin 2.5 mg/dl (0.2-1.3); Total Protein 5.9 g/dl (6.3-8.2); eGFR > 60.00
--- NOTE | 2024-04-05 11:43 | W.IMMPOSTOP ---
Addendum entered and electronically signed by Fredy Donahue MD 04/05/24 12:08:
Dic#[id number]
Original Note:
Surgical Immed Post Op Note
-
Primary Surgeon: Rowan
Assisting Surgeon: DEBBIE Parikh
Pre-op Diagnosis: Acute cholecystitis
Post-op Diagnosis: Acute cholecystitis
Procedure Performed: Laparoscopic cholecystectomy with IOC
Anesthesia Type: General
Specimen / Cultures:
1. Gallbladder
Estimated Blood Loss: 3 cc
Complications: None
Operative Findings:
1. Severe acute inflammation, large stone impacted at neck able to be milked back into GB body
2. IOC with anatomy confirmed and no filling defects
3. Duct taken with grant load stapler, artery obliterated
4. 19 Fr Marko drain into operative field
Plan
-- Abx 4 days
-- DC VIRA on DC if benign, likely POD#2
[2024-04-05 11:53] LABS: Magnesium 2.5 mg/dl (1.6-2.3)
--- NOTE | 2024-04-05 11:54 | CM ---
Addendum entered by Bobbi Wagoner 04/05/24 15:36:
Patient seen with , Zonia, initial assessment completed. Patient and reside together in a two story home, bedroom and bathroom on the first floor. Patient reports he does go up and down the stairs, has two canes and two walkers at home,
typically ambulates with a cane or independently. Patient reports he has had [facility] after knee surgery, denies SNF. Patient confirms PCP Dr. Mena, pharmacy [facility], confirms prescription coverage. Patient denies food insecurities at home.
Patient currently with VIRA drains, reports she was informed drains will be removed before discharge. Discussed VN for drain care if needed, patient and declining at this time. CM will continue to follow for all discharge planning needs.
Plan; home no needs likely.
Original Note:
CM attempted to see patient to conduct initial assessment, off floor for lap sarah. CM will continue to follow for discharge planning needs. Watch for PT recommendations when medically stable.
Plan; home no needs vs VN, watch for PT recommendations
[2024-04-05] MEDS: DILAUDID 0.5 MG IV (12:21)
[2024-04-05] MEDS: KCL 270 MEQ IV (12:32)
[2024-04-05] MEDS: LOPRESSOR 5 MG IV (12:33)
--- NOTE | 2024-04-05 13:00 | SUR.PHASEI ---
patient received in pacu with denise - zeroed and BP noted, initial bp treated with esmolol by FMD TEACHER, bladder distention noted, restless, but not oriented, unable to verbalize, bladder scan for 530, straight cathed using sterile technique and treated
with dilaudid for probable pain. BP remains elevated, DR Donahue and Dr Linares initially TT - and then Dr Winchester, BP treated with lopressor 5mg. KCL rider hung as ordered by medicine when pt in OR.
[2024-04-05] MEDS: ZOSYN IV (14:05)
[2024-04-05] MEDS: PROTONIX IV 40 MG IV (14:10)
[2024-04-05] MEDS: NSS (PRESERVATIVE FREE) 10 ML IV (14:10)
--- NOTE | 2024-04-05 14:11 | CON.GI ---
Consultation
-
Date/Time Consultation Performed: 04/05/24
Performing Provider: Connor Decker MD
Reason for Consultation: abnormal CT scan
Medical History
Chief Complaint / HPI
Chief Complaint: abdominal pain
History of Present Illness:
The patient is a 79-year-old male past medical history as noted presents to the emergency room with abdominal pain. He was recently vacationing and reviewed, the last few days has been having some abdominal discomfort. He fell on the shower after
feeling lightheaded and straining which prompted to come to emergency room. CT scan done with IV contrast showed cholelithiasis with acute cholecystitis without duct dilation. There was hypervascular solid mass in the pancreatic head measuring 2.1
x 1.4 cm, as well as finding suspicious for mild small bowel ileus and likely chronic aortic dissection measuring 4 cm. He states that prior to the past 3 days he had no significant GI symptoms. He does not follow-up with a chart collector
routinely, and is never had a colonoscopy. He denies any unexpected weight loss, vomiting, change bowel habits, melena or hematochezia. He did go to the operating room which showed cholecystitis with impacted gallstone, intraoperative
cholangiogram was negative for CBD stone. He is currently feeling better overall postoperatively.
Past Medical History
Past Medical History: Other (CVA Hypertension Hyperlipidemia Atrial fib, s/p watchman)
Past Surgical History: Other (Watchman procedure Left knee replacement)
Social History
Tobacco: Non-Smoker
Alcohol: None
Family History
Family History: Reviewed & Not Pertinent
Allergies / Home Medications
Allergy/AdvReac Type Severity Reaction Status Date / Time
No Known Allergies Allergy Verified 04/04/24 18:52
�Medication �Instructions �Recorded
aspirin 81 mg tablet,delayed 81 mg PO DAILY 04/04/24
release
atorvastatin 80 mg tablet 80 mg PO QPM 04/04/24
hydrochlorothiazide 25 mg tablet 25 mg PO DAILY 04/04/24
lisinopril 20 mg tablet 20 mg PO BID 04/04/24
metoprolol tartrate 50 mg tablet 50 mg PO BID 04/04/24
Review of Systems
-
All other systems: A 12 pt ROS was Negative except as stated above in HPI
Vital Signs
Temp Pulse Resp BP Pulse Ox
98 F 83 16 123/87 96
04/05/24 14:07 04/05/24 13:49 04/05/24 13:49 04/05/24 13:49 04/05/24 13:49
Physical Exam
Exam
General: NAD
HEENT: MMM, anicteric, no lymphadenopathy
Heart: Regular, no murmurs
Lungs: CTA bilaterally
Abdomen: no bowel sounds, soft, incision sites clean, dry and intact, small amount of serosanguineous fluid in VIRA drain, expected tenderness, no rebound
Extremeties: no edema
Skin: no rashes
Results
WBC 11.6 10^3/uL (4.8-10.8) H 04/05/24 08:47
Hgb 13.6 g/dL (13.0-18.0) 04/05/24 08:47
Hct 40.1 % (39.0-52.0) 04/05/24 08:47
MCV 89.1 fL (80.0-94.0) 04/05/24 08:47
Plt Count 211 10^3/uL (130-400) 04/05/24 08:47
Absolute Neuts (auto) 12.7 10^3/uL (1.4-6.5) H 04/04/24 18:05
Sodium 136 mmol/L (135-145) 04/05/24 08:47
Potassium 3.0 mmol/L (3.5-5.1) L 04/05/24 08:47
Chloride 99 mmol/L (98-107) 04/05/24 08:47
Carbon Dioxide 30 mmol/L (22-30) 04/05/24 08:47
BUN 22 mg/dl (9-20) H 04/05/24 08:47
Creatinine 1.0 mg/dL (0.7-1.3) 04/05/24 08:47
Calcium 8.8 mg/dl (8.4-10.2) 04/05/24 08:47
Total Bilirubin 2.5 mg/dl (0.2-1.3) H 04/05/24 08:47
AST 27 U/L (17-59) 04/05/24 08:47
ALT 18 U/L (0-50) 04/05/24 08:47
Alkaline Phosphatase 155 U/L (38-126) H 04/05/24 08:47
Lipase 40 U/L (23-300) 04/04/24 18:05
Diagnostic Image Results:
CT with IV contrast:
IMPRESSION:
Cholelithiasis. Acute cholecystitis. No bile duct dilatation. Mild ascites. No focal collection or abscess.
Homogeneous hypervascular solid mass in the pancreatic head measuring 2.1 x 1.4 cm. Possible considerations include solid pseudopapillary tumor, solid serous cystadenoma, pancreatic acinar cell carcinoma, or neuroendocrine tumor.
Findings suspicious for mild small bowel ileus.
Incidental distal aortic dissection measuring approximately 4 cm in length just above the bifurcation with associated mild ectasia measuring 2.8 cm transverse.
Prior GI Procedures:
EGD:
Colonoscopy:
Assessment / Plan
-
1. Cholecystitis: Status post cholecystectomy with intraoperative cholangiogram which was negative, overall doing well. Will continue postoperative care per surgery.
2. 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 At this point we will plan MRI when he is able, likely over
the weekend for further clarification. Pending those results may need endoscopic ultrasound as an outpatient.
-
-
Thank you for consultation and allowing me to participate in the patient's care. Please call the electronic test technician GI physician during the after hours with any questions or concerns.
--- NOTE | 2024-04-05 14:16 | W.PN.HOSP.TC ---
Today's Communication/Plan
-
Resume diet
Assessment / Plan
Assessment / Plan
Gen-AAOx3, NAD
HEENT-NC, AT, anicteric, clear oral mm
Neck-supple
CV-reg, no M, +S1/S2
Lungs-clear B/L
Abd-soft, NT, ND
Ext-no edema
Musculoskeletal-no cyanosis, clubbing
Skin-warm and dry
Neuro-grossly non-focal
Psych-calm, cooperative
Sepsis due to acute calculus cholecystitis - stable after laparoscopic cholecystectomy April 05. Unremarkable intraoperative cholangiogram. VRIA drain in place. Pain is controlled currently.
Diet resumed by surgery. Can discontinue IV fluids.
Elevated bilirubin and alkaline phosphatase noted, transaminases normal. Lipase normal.
Sepsis resolved. Currently on IV Zosyn empirically. White blood cell count coming down. Afebrile. Surgical service recommends 4 days of antibiotics.
Ileus -present on admission. Noted on CT scan.
Pancreatic mass -homogeneous and hypervascular solid mass in the pancreatic head measuring 2.1 x 1.4 cm. Will try to get abdominal MRI this weekend. Discussed with GI service.
Asymptomatic abdominal aortic dissection -measuring 4 cm in length just above the bifurcation. Vascular surgery recommends conservative management, outpatient follow-up.
Hyponatremia -resolved. Would not resume hydrochlorothiazide on discharge.
Hypokalemia -magnesium level normal. Replete intravenously. Recheck labs tomorrow.
Hyperlipidemia -on atorvastatin.
Atrial fibrillation -unknown type. Has Watchman device.
History of stroke
Essential hypertension
DNR
Anticipated Discharge: 24 - 48 hours
Subjective/Interval History
-
Date of Service: April 05, 2024
Patient seen and examined. Pain controlled. Denies nausea. Had surgery earlier today. No complaints.
Objective Data
-
Labs:
Laboratory Results
04/05/24
08:47
WBC 11.6 H
Hgb 13.6
Hct 40.1
Plt Count 211
Sodium 136
Potassium 3.0 L
Chloride 99
Carbon Dioxide 30
BUN 22 H
Creatinine 1.0
Glucose 65 L
Calcium 8.8
Total Bilirubin 2.5 H
AST 27
ALT 18
Alkaline Phosphatase 155 H
Vital Signs:
Vital Signs
Temp Pulse Resp BP Pulse Ox
98 F 83 16 123/87 96
04/05/24 14:07 04/05/24 13:49 04/05/24 13:49 04/05/24 13:49 04/05/24 13:49
I&O
04/04/24 04/05/24 04/06/24
06:59 06:59 06:59
Intake Total 450 / 450
Output Total 1100 / 1100 585 / 585
Balance -650 / -650 -585 / -585
Review of Systems
-
History Source: Patient
All other systems: Reviewed and negative
--- NOTE | 2024-04-05 14:18 | SUR.PHASEI ---
denise dc'd and pressure held - BP improved, okay to discharge to tele per Dr Winchester and Dr Donahue
--- NOTE | 2024-04-05 17:34 | PTCARENOTE ---
Notified provider of patient's K 3.0, repletion ordered.
[2024-04-05] MEDS: LIPITOR 80 MG PO (17:57)
[2024-04-05] MEDS: LOVENOX 40 MG SC (17:57)
[2024-04-06] MEDS: MELATONIN 3 MG PO (01:56)
[2024-04-06] MEDS: ZOSYN 50 IV ×4 (03:38→21:24)
[2024-04-06 04:11] VITALS: BP 139/93
[2024-04-06] MEDS: SENOKOT-S 1 TABLET PO (06:21)
[2024-04-06 07:00] VITALS: BP 145/105
[2024-04-06 07:15] LABS: Hematocrit 38.6 % (39.0-52.0); Mean Corp Hgb Conc. 33.7 g/dL (33.0-37.0); Mean Corpuscular Hgb 30.2 pg (27.0-31.0); Mean Corpuscular Volume 89.6 fL (80.0-94.0); Mean Platelet Volume 10.6 fL (7.4-10.4); Platelet Count 240 10^3/uL (130-400); Red Blood Cell Count 4.31 10^6/uL (4.70-6.10); Red Cell Dist. Width 15.9 % (11.5-14.5); White Blood Cell Count 11.1 10^3/uL (4.8-10.8)
[2024-04-06 07:39] LABS: ALT (SGPT) 70 U/L (0-50); AST (SGOT) 83 U/L (17-59); Albumin 3.4 g/dl (3.5-5.0); Alkaline Phosphatase 298 U/L (38-126); Blood Urea Nitrogen 30 mg/dl (9-20); Carbon Dioxide 27 mmol/L (22-30); Chloride 100 mmol/L (98-107); Estimated Creatinine Clearance 62 ml/min; Glucose 121 mg/dl (70-99); Potassium 3.7 mmol/L (3.5-5.1); Sodium 136 mmol/L (135-145); Total Bilirubin 1.9 mg/dl (0.2-1.3); Total Protein 5.8 g/dl (6.3-8.2); eGFR > 60.00
[2024-04-06] MEDS: PROTONIX IV 40 MG IV (08:07)
[2024-04-06] MEDS: NSS (PRESERVATIVE FREE) 10 ML IV (08:07)
[2024-04-06] MEDS: ASPIR LOW (ENTERIC COATED) 81 MG PO (08:07)
[2024-04-06] MEDS: LOPRESSOR 50 MG PO ×2 (08:07→20:26)
[2024-04-06] MEDS: MIRALAX 17 GRAMS PO (08:07)
--- NOTE | 2024-04-06 09:36 | W.PN.HOSP.TC ---
Today's Communication/Plan
-
Resume lisinopril
Assessment / Plan
Assessment / Plan
Gen-AAOx3, NAD
HEENT-NC, AT, anicteric, clear oral mm
Neck-supple
CV-reg, no M, +S1/S2
Lungs-clear B/L
Abd-soft, NT, ND, drain in place
Ext-no edema
Musculoskeletal-no cyanosis, clubbing
Skin-warm and dry
Neuro-grossly non-focal
Psych-calm, cooperative
Sepsis due to acute calculus cholecystitis - stable after laparoscopic cholecystectomy April 05. Unremarkable intraoperative cholangiogram. VIRA drain in place. Pain is controlled currently.
Tolerating solid food.
Elevated bilirubin and alkaline phosphatase noted, transaminases normal. Lipase normal.
Sepsis resolved. Currently on IV Zosyn empirically. White blood cell count coming down. Afebrile. Surgical service recommends 4 days of antibiotics, day 2 of 4.
Ileus -present on admission. Noted on CT scan. Resolved.
Pancreatic mass -homogeneous and hypervascular solid mass in the pancreatic head measuring 2.1 x 1.4 cm. Will try to get abdominal MRI this weekend. Discussed with GI service.
Asymptomatic abdominal aortic dissection -measuring 4 cm in length just above the bifurcation. Vascular surgery recommends conservative management, outpatient follow-up.
Hyponatremia -resolved. Would not resume hydrochlorothiazide on discharge.
Hypokalemia -resolved.
Hyperlipidemia -on atorvastatin.
Atrial fibrillation -unknown type. Has Watchman device.
History of stroke
Essential hypertension -blood pressure elevated. Resume lisinopril. Continue metoprolol. HCTZ permanently discontinued due to hyponatremia. Discussed with patient.
DNR
Anticipated Discharge: Within 24 hours
Subjective/Interval History
-
Date of Service: April 06, 2024
Patient seen and examined. Complaining of mild abdominal pain.
Objective Data
-
Labs:
Laboratory Results
06/01/24 06/01/24
06:27 06:28
WBC 11.1 H
Hgb 13.0
Hct 38.6 L
Plt Count 240
Sodium 136
Potassium 3.7
Chloride 100
Carbon Dioxide 27
BUN 30 H
Creatinine 1.0
Glucose 121 H
Calcium 9.0
Total Bilirubin 1.9 H
AST 83 H
ALT 70 H
Alkaline Phosphatase 298 H
Vital Signs:
Vital Signs
Temp Pulse Resp BP Pulse Ox
98 F 100 16 145/105 94
04/06/24 07:00 04/06/24 07:00 04/06/24 07:00 04/06/24 07:00 04/06/24 07:00
I&O
04/05/24 04/06/24 04/07/24
06:59 06:59 06:59
Intake Total 450 / 450 885 / 885
Output Total 1100 / 1100 1235 / 1235
Balance -650 / -650 -350 / -350
Review of Systems
-
History Source: Patient
All other systems: Reviewed and negative
--- NOTE | 2024-04-06 09:49 | W.PN.GI.CBS2 ---
Today's Communication / Plan
-
Please see assessment and plan for details.
Assessment / Plan
-
1. Cholecystitis: Status post cholecystectomy with intraoperative cholangiogram which was negative, overall doing well. Will continue postoperative care per surgery.
2. 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 At this point we will plan MRI. Pending those results may
need endoscopic ultrasound as an outpatient.
Subjective
Subjective
Date of Service: April 06, 2024
Patient doing okay, some pain at incision sites original pain is resolved, no fevers or chills. No bowel movements yet though is tolerating breakfast.
Objective
Data Reviewed
Laboratory Data:
Laboratory Results
04/06/24 06:27
04/06/24 06:28
Laboratory Results
Magnesium 2.5 mg/dl (1.6-2.3) H 04/05/24 08:47
Total Bilirubin 1.9 mg/dl (0.2-1.3) H 04/06/24 06:28
AST 83 U/L (17-59) H 04/06/24 06:28
ALT 70 U/L (0-50) H 04/06/24 06:28
Alkaline Phosphatase 298 U/L (38-126) H 04/06/24 06:28
Lipase 40 U/L (23-300) 04/04/24 18:05
Vital Signs and I&O:
Vital Signs
Temp Pulse Resp BP Pulse Ox
98 F 100 16 145/105 94
04/06/24 07:00 04/06/24 07:00 04/06/24 07:00 04/06/24 07:00 04/06/24 07:00
I&O
04/05/24 04/06/24 04/07/24
06:59 06:59 06:59
Intake Total 450 / 450 885 / 885
Output Total 1100 / 1100 1235 / 1235
Balance -650 / -650 -350 / -350
Physical Exam
Physical Exam
General: NAD
Abdomen: Few normal bowel sounds, mildly distended though soft, mild appropriate tenderness, no masses or bruits, no ascites, small amount of yellow fluid in VIRA drain
[2024-04-06] MEDS: ZESTRIL 20 MG PO ×2 (10:40→20:26)
[2024-04-06 11:00] VITALS: BP 129/86
--- NOTE | 2024-04-06 11:14 | W.PN.GS2 ---
Addendum entered and electronically signed by Fredy Donahue MD 04/06/24 12:03:
Patient seen and examined. Agree with assessment plan as document below.
No specific complaints. Notes some soreness in the RUQ. States that lower abdominal discomfort and leg swelling has improved. No nausea or vomiting. No fevers.
Gen: NAD
Abd: soft, mild tenderness in RUQ, ND, non-peritoneal, incisions c/d/i - no erythema, ecchymosis or drainage, VIRA serous, non-bilious
Patient is a 79 yo M p/w acute calculus cholecystitis POD#1 s/p laparoscopic cholecystectomy with IOC
Incidental findings of pancreatic head mass, GI consult noted, workup ongoing
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
Recovering well. No postoperative concerns. Plan to monitor in hospital setting for additional IV antibiotics and drain management. Plans for MRI today for further workup of his pancreatic Mass.
-- Regular diet
-- Pain control: Tylenol, Toradol, Tramadol
-- Abx: Zosyn, plan for 4 days total
-- Home medications
-- Lovenox for DVT
-- MRI abdomen for work-up of pancreatitis mass
-- Tentative plan for DC tomorrow, VIRA to be removed on DC if benign
Original Note:
Today's Communication / Plan
-
Continue abx x4 days post op
Analgesics prn
Assessment / Plan
-
79 yo male presenting with ACC complicated by incidental findings of pancreatic head mass noted on imaging as well.
POD #1 lap sarah with severe acute inflammation noted intraop
AFVSS
Tolerating diet
Leukocytosis and LFT's improving,
--Pancreatic mass work up as per GI
--Continue abx x4 days total post op
--C/W VIRA drain, anticipate removal prior to discharge
--Ok for low fat diet
--Analgesics prn. Tylenol, Toradol, Tramadol
--VTE ppx with lovenox and scd's while in bed
--Continue bowel regimen
Subjective Data
-
Date of Service: April 06, 2024
Patient seen and examined at bedside with Dr. Donahue. Denies n/v. Tolerating diet. Passing flatus. Some soreness to right side.
Objective Data
-
Intake and Output
04/05/24 04/06/24 04/07/24
06:59 06:59 06:59
Intake Total 450 / 450 885 / 885
Output Total 1100 / 1100 1235 / 1235
Balance -650 / -650 -350 / -350
Intake:
Oral fluids 620 / 620
IV fluids (Total) 400 / 400 265 / 265
KCL rider 65 / 65
normosol 200 / 200
IV piggybacks 50 / 50
Output:
Drain Output (Total) 185 / 185
Right Abdomen [place] 185 / 185
Urine, Voided 300 / 300 1050 / 1050
Straight cath output 800 / 800
Other:
Number of approximated MODERATE 1
amounts of urine
Vital Signs
Temp Pulse Resp BP Pulse Ox
98 F 100 16 120/86 94
04/06/24 07:00 04/06/24 07:00 04/06/24 07:00 04/06/24 10:40 04/06/24 07:00
Lab Results
04/06/24 06:27
04/06/24 06:28
Calcium 9.0 mg/dl (8.4-10.2) 04/06/24 06:28
Magnesium 2.5 mg/dl (1.6-2.3) H 04/05/24 08:47
Total Bilirubin 1.9 mg/dl (0.2-1.3) H 06/01/24 06:28
AST 83 U/L (17-59) H 04/06/24 06:28
ALT 70 U/L (0-50) H 04/06/24 06:28
Alkaline Phosphatase 298 U/L (38-126) H 04/06/24 06:28
Total Protein 5.8 g/dl (6.3-8.2) L 04/06/24 06:
Albumin 3.4 g/dl (3.5-5.0) L 04/06/24 06:28
Physical Exam
-
NAD
ABD soft, expected incisional/ruq tenderness: mild, ND.
Incisions well approximated with intact glue and no erythema. VIRA with ssf (nonbilious)
[2024-04-06 15:00] VITALS: BP 146/96
[2024-04-06] MEDS: FLEET MINERAL OIL ENEMA 133 ML RECTAL (15:43)
[2024-04-06] MEDS: LOVENOX 40 MG SC (17:44)
[2024-04-06 20:50] VITALS: BP 149/96
[2024-04-06] MEDS: MELATONIN 5 MG PO (22:42)
[2024-04-06 23:58] VITALS: BP 164/95
--- NOTE | 2024-04-07 00:45 | PTCARENOTE ---
Pt is asking to get something for sleep. Melatonin ordered and given to pt. Pt still cannot fall asleep. Pt says that his room mate is too noisy and keeps him awake. Offered to talk to SUPERVISOR BACKFILLING and get an order for additional sleep aid/antianxiety med,
but pt refuses. All beds on 4[address] are full. Nursing supervisor coating notified. No other rooms available at this time. At this time pt expresses a want to leave AMA. ALINE Peng notified. SUPERVISOR BACKFILLING talked to the pt and pt is agreeing to stay if he gets a private
room. Private room arranged on , room 2100. Pt was transferred to 2100 via wheelchair and with all his belongings. Report given to HARISH Avery.
[2024-04-07 00:50] VITALS: BP 144/96
--- NOTE | 2024-04-07 00:56 | W.PN.UPDATE ---
Update Note
Progress Note Update
0000 Notified by RN that Pt wants to sign out AMA
When speaking with pt, pt expresses frustrations on lack of sleep, noises around nurses station, and having roomates that are confused keeping him up all night. Despite melatonin given he has not been able to sleep. I did explain my concerns over
letting him sign out AMA ( pt has VIRA drain, and possibility of needing abx at DC), i told pt my concerns that if he is sent home too early, he may have complications (ie sepsis and even ). I discussed with him staying one more night to be dc
the proper way (scripts etc) and proper dc and follow up care. I have offered multiple modalities to aide in sleep ( ear plugs, benadryl) but he states nothing works. After discussion with nursing utility supervisor boat and plant about finding solutions for another room
potentially, we were able to find a more compatible room for tonight. Pt is willing to stay with these changes.
[2024-04-07 01:17] VITALS: BP 144/96
[2024-04-07 03:40] VITALS: BP 143/93
[2024-04-07] MEDS: ZOSYN 50 IV ×2 (03:55→09:48)
[2024-04-07 06:55] LABS: ALT (SGPT) 63 U/L (0-50); AST (SGOT) 68 U/L (17-59); Albumin 3.2 g/dl (3.5-5.0); Alkaline Phosphatase 259 U/L (38-126); Blood Urea Nitrogen 31 mg/dl (9-20); Carbon Dioxide 26 mmol/L (22-30); Chloride 102 mmol/L (98-107); Estimated Creatinine Clearance 69 ml/min; Glucose 88 mg/dl (70-99); Potassium 3.2 mmol/L (3.5-5.1); Sodium 137 mmol/L (135-145); Total Bilirubin 1.4 mg/dl (0.2-1.3); Total Protein 5.6 g/dl (6.3-8.2); eGFR > 60.00
[2024-04-07 07:41] VITALS: BP 137/89
[2024-04-07] MEDS: ZESTRIL 20 MG PO (08:34)
[2024-04-07] MEDS: LOPRESSOR 50 MG PO (08:34)
[2024-04-07] MEDS: PROTONIX IV 40 MG IV (08:34)
[2024-04-07] MEDS: NSS (PRESERVATIVE FREE) 10 ML IV (08:35)
[2024-04-07] MEDS: MIRALAX 17 GRAMS PO ×2 (08:35→09:49)
[2024-04-07] MEDS: ASPIR LOW (ENTERIC COATED) 81 MG PO (08:35)
--- NOTE | 2024-04-07 09:35 | W.PN.GS2 ---
Addendum entered and electronically signed by Fredy Donahue MD 04/07/24 09:47:
Patient seen and examined. Agree with assessment plan as documented below.
No major complaints. Reports some upper abdominal soreness. Fixated on having a bowel movement. No nausea or vomiting. Passing flatus.
Gen: NAD
Abd: soft, appropriately tender, ND, non-peritoneal, incisions c/d/i - no erythema, ecchymosis, or drainage, VIRA serosang, non-bilious
79 yo male presenting with ACC complicated by incidental findings of pancreatic head mass noted on imaging as well.
POD #2 lap sarah with severe acute inflammation noted intraop
AFVSS
Tolerating diet
LFT's improving,
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
--Continue abx x4 days total post op. Can convert to PO Augmentin upon d/c
--C/W VIRA drain, anticipate removal prior to discharge
--Ok for low fat diet
--Analgesics prn. Tylenol, Toradol, Tramadol
--VTE ppx with lovenox and scd's while in bed
--MOM now and Miralax BID
Original Note:
Today's Communication / Plan
-
Bowel regimen
Continue diet
Assessment / Plan
-
79 yo male presenting with ACC complicated by incidental findings of pancreatic head mass noted on imaging as well.
POD #2 lap sarah with severe acute inflammation noted intraop
AFVSS
Tolerating diet
LFT's improving,
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
--Continue abx x4 days total post op. Can convert to PO augmentin upon d/c
--C/W VIRA drain, anticipate removal prior to discharge
--Ok for low fat diet
--Analgesics prn. Tylenol, Toradol, Tramadol
--VTE ppx with lovenox and scd's while in bed
--MOM now and Miralax BID
Final Dispo as per primary team
Subjective Data
-
Date of Service: April 07, 2024
Patient seen and examined at bedside with Dr. Donahue. Denies n/v. Unable to have a BM despite suppositories and feels uncomfortable from this. Denies significant incisional pain
Objective Data
-
Intake and Output
04/06/24 04/07/24 04/08/24
06:59 06:59 06:59
Intake Total 885 / 885 1080 / 1080
Output Total 1235 / 1235 70 / 70
Balance -350 / -350 1010 / 1010
Intake:
Oral fluids 620 / 620 1080 / 1080
IV fluids (Total) 265 / 265
KCL rider 65 / 65
normosol 200 / 200
Output:
Drain Output (Total) 185 / 185 70 / 70
Right Abdomen [place]har[place] 185 / 185 70 / 70
Urine, Voided 1050 / 1050
Other:
Number of approximated SMALL 1
amounts of urine
Number of approximated MODERATE 1 1
amounts of urine
Number of approximated LARGE 3
amounts of urine
Vital Signs
Temp Pulse Resp BP Pulse Ox
98.1 F 98 14 137/89 96
04/07/24 07:41 04/07/24 08:34 04/07/24 07:41 04/07/24 08:34 04/07/24 07:41
Lab Results
04/06/24 06:27
04/07/24 05:04
Calcium 9.0 mg/dl (8.4-10.2) 04/07/24 05:04
Magnesium 2.5 mg/dl (1.6-2.3) H 04/05/24 08:47
Total Bilirubin 1.4 mg/dl (0.2-1.3) H 04/07/24 05:04
AST 68 U/L (17-59) H 04/07/24 05:04
ALT 63 U/L (0-50) H 04/07/24 05:04
Alkaline Phosphatase 259 U/L (38-126) H 04/07/24 05:04
Total Protein 5.6 g/dl (6.3-8.2) L 04/07/24 05:04
Albumin 3.2 g/dl (3.5-5.0) L 04/07/24 05:04
Physical Exam
-
NAD
ABD soft, expected incisional/ruq tenderness: mild, ND.
Incisions well approximated with intact glue and no erythema. VIRA with ssf (nonbilious)
[2024-04-07] MEDS: MILK OF MAGNESIA 30 ML PO (09:49)
[2024-04-07] MEDS: DULCOLAX 10 MG RECTAL (09:50)
--- NOTE | 2024-04-07 11:31 | W.PN.GI.CBS2 ---
Today's Communication / Plan
-
outpatient GI follow up, signing off
Assessment / Plan
-
1. Cholecystitis: Status post cholecystectomy with intraoperative cholangiogram which was negative, overall doing well. Will continue postoperative care per surgery.
2. 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 I recommended EUS outpatient pt hesitant.
I explained to pt how EUS can help diagnose definitively etiology of panc lesion and depending on findings would depend on treatment. I strongly encouraged him to have EUS but did not want to schedule at this time. I did get him to agree to
outpatient appt with Dr. Vagras to discuss - I sent msg to office to set up. Outpatient appt with Dr. Vargas to discuss.
3. Constipation: Just had MoM, another option is mag citrate if no BM. Could even do 1L [place]. Recommend miralax outpatient may benefit from rx medication can discuss with GI outpatient.
GI will sign off pls call with ?s
Subjective
Subjective
Date of Service: April 07, 2024
small BM constipated
no abd pain
wants to be discharged kalyani
Objective
Data Reviewed
Laboratory Data:
Laboratory Results
04/06/24 06:27
04/07/24 05:04
Laboratory Results
Magnesium 2.5 mg/dl (1.6-2.3) H 04/05/24 08:47
Total Bilirubin 1.4 mg/dl (0.2-1.3) H 04/07/24 05:04
AST 68 U/L (17-59) H 04/07/24 05:04
ALT 63 U/L (0-50) H 04/07/24 05:04
Alkaline Phosphatase 259 U/L (38-126) H 04/07/24 05:04
Lipase 40 U/L (23-300) 04/04/24 18:05
Vital Signs and I&O:
Vital Signs
Temp Pulse Resp BP Pulse Ox
98.1 F 98 14 137/89 96
04/07/24 07:41 04/07/24 08:34 04/07/24 07:41 04/07/24 08:34 04/07/24 07:41
I&O
04/06/24 04/07/24 04/08/24
06:59 06:59 06:59
Intake Total 885 / 885 1080 / 1080
Output Total 1235 / 1235 70 / 70
Balance -350 / -350 1010 / 1010
Physical Exam
Physical Exam
GI: Non Distended and Non Tender
--- NOTE | 2024-04-07 12:30 | W.PN.HOSP.TC ---
Addendum entered and electronically signed by Wu Bernard DO 04/07/24 12:40:
I spoke with general surgery. They are okay with discharge today, will pull the drain before he leaves.
Updated patient and family. Still waiting for physical therapy assessment. If cleared, will discharge today. Outpatient follow-up.
Original Note:
Today's Communication/Plan
-
PT/OT
Assessment / Plan
Assessment / Plan
Gen-AAOx3, NAD
HEENT-NC, AT, anicteric, clear oral mm
Neck-supple
CV-reg, no M, +S1/S2
Lungs-clear B/L
Abd-soft, NT, ND, drain in place
Ext-no edema
Musculoskeletal-no cyanosis, clubbing
Skin-warm and dry
Neuro-grossly non-focal
Psych-calm, cooperative
Sepsis due to acute calculus cholecystitis - stable after laparoscopic cholecystectomy April 05. Unremarkable intraoperative cholangiogram. VIRA drain in place, 70 cc output overnight. Pain is controlled currently. Surgery anticipates removing drain
prior to discharge.
Tolerating solid food.
Bilirubin coming down. Transaminases now elevated.
Sepsis resolved. Currently on IV Zosyn empirically. White blood cell count coming down. Afebrile. Surgical service recommends 4 days of antibiotics, day 3 of 4. Will change to Augmentin today.
Ileus -present on admission. Noted on CT scan. Resolved.
Pancreatic mass -MRI shows 2.8 cm enhancing mass concerning for neuroendocrine tumor. Gastroenterology recommends outpatient EUS. Follow-up with Dr. Vargas in the office to discuss. Informed patient and family.
Asymptomatic abdominal aortic dissection -measuring 4 cm in length just above the bifurcation. Vascular surgery recommends conservative management, outpatient follow-up.
Hyponatremia -resolved. Would not resume hydrochlorothiazide on discharge.
Hypokalemia -replete orally. Check magnesium.
Hyperlipidemia -hold atorvastatin due to elevated liver enzymes.
Atrial fibrillation -unknown type. Has Watchman device.
History of stroke
Essential hypertension -blood pressure stable. HCTZ permanently discontinued due to hyponatremia. Discussed with patient.
DNR
PT/OT
Updated family at the bedside.
Anticipated Discharge: Within 24 hours
Subjective/Interval History
-
Date of Service: April 07, 2024
Patient seen and examined. Finally had a bowel move. Feeling better. No complaints.
Objective Data
-
Labs:
Laboratory Results
04/07/24
05:04
Sodium 137
Potassium 3.2 L
Chloride 102
Carbon Dioxide 26
BUN 31 H
Creatinine 0.9
Glucose 88
Calcium 9.0
Total Bilirubin 1.4 H
AST 68 H
ALT 63 H
Alkaline Phosphatase 259 H
Vital Signs:
Vital Signs
Temp Pulse Resp BP Pulse Ox
98.1 F 98 14 137/89 96
04/07/24 07:41 04/07/24 08:34 04/07/24 07:41 04/07/24 08:34 04/07/24 07:41
I&O
04/06/24 04/07/24 04/08/24
06:59 06:59 06:59
Intake Total 885 / 885 1080 / 1080
Output Total 1235 / 1235 70 / 70
Balance -350 / -350 1010 / 1010
Review of Systems
-
History Source: Patient
All other systems: Reviewed and negative
--- NOTE | 2024-04-07 12:44 | W.DS.TRANS ---
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
-
Discharge Instructions:
Sleep Apnea Risk Intermediate
Discharge Diagnosis/Procedures Acute cholecystitis, sepsis, pancreatic mass,
abdominal aortic dissection, electrolyte
abnormalities
Diet Low Fat,Low Cholesterol
Additional Diets If you notice loose stools after surgery, switch
to a low fat diet.
Activity No strenuous activity
Additional Activity Avoid lifting more than 15-20 lbs for the next 2
-3 weeks
Driving Restrictions Not until seen by your Dr
Bathing Restrictions OK to Shower
Blood Work CMP next week with your primary care doctor
Wound Care Keep incisions clean and dry. The glue over
your incisions will flake off on its own in 2-3
weeks. Avoid scrubbing or picking it off.
stitches will dissolve.
Instructions:
Stand-Alone Forms:
Changes to Home Medications: Yes
Discharge Medications:
DC Medications w/original date entered in [employer]
aspirin 81 mg tablet,delayed release 81 mg PO DAILY Blood Clot Prevention/Tx 04/04/24
atorvastatin 80 mg tablet 80 mg PO QPM High Cholesterol 04/04/24
lisinopril 20 mg tablet 20 mg PO BID Blood Pressure 04/04/24
metoprolol tartrate 50 mg tablet 50 mg PO BID Blood Pressure 04/04/24
amoxicillin 875 mg-potassium clavulanate 125 mg tablet 1 tab PO Q12 #3 tabs 04/07/24
polyethylene glycol 3350 17 gram oral powder packet (HealthyLax) 17 g PO BID #0 ea 04/07/24
Home Medication Changes
Stop hydrochlorothiazide
Hold atorvastatin until you speak with your primary care doctor
Pending Results: No
[2024-04-07] MEDS: KCL 40 MEQ PO (12:45)
[2024-04-07 12:53] VITALS: BP 132/83
[2024-04-07 13:10] LABS: Magnesium 2.4 mg/dl (1.6-2.3)
[2024-04-07 13:53] VITALS: BP 146/97
[2024-04-07 14:32] LABS: CA 19-9 <2 U/mL (<=35)
--- NOTE | 2024-04-07 14:55 | CM ---
Pt for dc today.
IMM signed and on chart.
PT saw him and recommended Outpatient.
SW reached out to and script was sent.
Pt will dc with no additional needs
== END 2024-04-07 15:05 | disposition home or self-care (01) | DRG 853 ==
LOC: 2 SOUTH 23:01
PROVIDERS: Physician Assistant; Radiology Diagnostic Radiology; Registered Nurse; ADMITTING PHYSICIAN Hospitalist; ATTENDING PHYSICIAN Hospitalist; CONSULT PHYSICIAN Internal Medicine Gastroenterology; EMERGENCY PHYSICIAN Emergency Medicine; FAMILY PHYSICIAN Family Medicine; OTHER PHYSICIAN Nurse Practitioner Acute Care; OTHER PHYSICIAN Surgery
PROC: BF502Z0 Other Imaging of Bile Ducts using Fluorescing Agent, Intraoperative (ICD-10-PCS; 2024-04-05)
PROC: 0FT44ZZ Resection of Gallbladder, Percutaneous Endoscopic Approach (ICD-10-PCS; 2024-04-05)
DX: A41.9 Sepsis, unspecified organism (principal); I71.02 Dissection of abdominal aorta; E87.1 Hypo-osmolality and hyponatremia; R18.8 Other ascites; K56.7 Ileus, unspecified; K80.00 Calculus of gallbladder with acute cholecystitis without obstruction; I10 Essential (primary) hypertension; I73.9 Peripheral vascular disease, unspecified; Z66 Do not resuscitate; S09.90XA Unspecified injury of head, initial encounter; D49.0 Neoplasm of unspecified behavior of digestive system; E86.0 Dehydration; E78.00 Pure hypercholesterolemia, unspecified; E78.5 Hyperlipidemia, unspecified; E87.6 Hypokalemia; I48.0 Paroxysmal atrial fibrillation; K59.00 Constipation, unspecified; W18.2XXA Fall in (into) shower or empty bathtub, initial encounter; Y92.002 Bathroom of unspecified non-institutional (private) residence as the place of occurrence of the external cause; Y93.E1 Activity, personal bathing and showering; R74.01 Elevation of levels of liver transaminase levels; Z96.652 Presence of left artificial knee joint; Z95.818 Presence of other cardiac implants and grafts; Z79.82 Long term (current) use of aspirin; Z79.899 Other long term (current) drug therapy; Z86.73 Personal history of transient ischemic attack (TIA), and cerebral infarction without residual deficits; Z87.891 Personal history of nicotine dependence
CPT/HCPCS: 88304; 70450; 74177; 74183; 74300; 76000; 76700; 80053; 81003; 81015; 82378; 83690; 83735; 83880; 84484; 85025; 85027; 86301; 93005; 96361; 96365; 97162; 99285; A9575; Q9967

== ENCOUNTER 2024-05-06 09:10 | Emergency (ER) | payer OTHER, SELFPAY ==
[2024-05-06 09:24] VITALS: BP 171/108
[2024-05-06 10:06] VITALS: BMI 27.7
--- NOTE | 2024-05-06 10:16 | ED.GENMED ---
History of Present Illness
General
Chief Complaint: Male Genito-Urinary Symptoms
Source: patient, records, spouse and previous hospital records
Exam Limitations: none
Time Seen by Provider: 05/06/24 09:50
Nursing documentation reviewed up to this point in time: agreed with
History of Present Illness
History of Present Illness:
79-year-old male presents with dysuria frequency, urinary incontinence onset a few days ago recently admitted with cholecystitis, underwent cholecystectomy, apparently had some straight caths at that time but no indwelling catheter followed up at
[facility] due to concern for malignancies in his chest or abdomen, in the process of being worked up no fevers no nausea or vomiting although noted to have a fever here, feels generally well with the exception of urinary frequency and incontinence
Past History
Past History
ED Past Medical History: Cancer
ED Past Surgical History: Cholecystectomy
Social History
Tobacco: Non-smoker
Alcohol: None
Drug: None
Personal:
Living: with family
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
Review of Systems
Review of Systems
All Other Systems: Not applicable
Constitutional: Denies fever, fatigue or chills
EENT: Reports no symptoms
Respiratory: Reports no symptoms
Cardiac: Reports no symptoms
ABD/GI: Reports no symptoms
: Reports dysuria, frequency, incontinence and difficulty voiding; Denies flank pain
Musculoskeletal: Reports no symptoms
Phy Exam
Physical Exam
Physical Exam:
Physical Exam
General: Elderly male nontoxic low-grade temperature
Neck: No jaundice
Heart: Tachycardic
Lungs: no acute respiratory distress. clear bilaterally
Abdomen: Mild suprapubic tenderness
Neuro: alert and oriented. no focal neurological deficits
Skin: no rash
Psychiatric: well kept. interactive and cooperative
Extremities: no edema.
Course
Orders/Labs/Results
Orders:
Orders
05/06/24 10:02
Bladder Scan- Treatment ONCE
05/06/24 10:03
0.9% Sodium Chloride 1000 ml [Nss] 1,000 ml IV BOLUS
Acetaminophen [Tylenol] 1,000 mg PO NOW STA
US Renal With Bladder Urgent
Comment: bladder not full ok, looking at ureteral jets
Reason For Exam: uti fever
05/06/24 10:22
Complete Blood Count/With Diff Urgent
Comprehensive Metabolic Panel Urgent
Lactic Acid Q4H
Comment: CANCEL 2nd LACTIC ACID IF 1st LACTIC ACID IS LESS THAN 2
Blood Culture Q30M
KASHIF Source: Blood/Venous
Specimen Description:
05/06/24 10:24
Urinalysis Reflex To Culture Urgent
Date Specimen was Collected: 05/06/24
Time Specimen was Collected: 10:23
Urine Microscopic Reflex Cult Urgent
Urine Culture Urgent
KASHIF Source: U
Specimen Description:
Date Specimen was Collected: 05/06/24
Time Specimen was Collected: 10:23
05/06/24 10:30
Blood Culture Q30M
KASHIF Source: Blood/Venous
Specimen Description:
05/06/24 11:45
CefTRIAXone [Rocephin] 1,000 mg IV NOW STA
05/06/24 14:00
Lactic Acid Q4H
Comment: CANCEL 2nd LACTIC ACID IF 1st LACTIC ACID IS LESS THAN 2
Abnormal Lab Results
05/06/24 05/06/24
10:22 10:24
RBC 4.37 L 10^6/uL
(4.70-6.10)
Hct 37.9 L %
(39.0-52.0)
RDW 15.1 H %
(11.5-14.5)
Absolute Lymphs (auto) 1.0 L 10^3/uL
(1.2-3.4)
Absolute Monos (auto) 1.0 H 10^3/uL
(0.1-0.6)
Lymphocytes % 15.5 L %
(20.5-51.1)
Monocytes % 15.2 H %
(1.7-9.3)
Potassium 3.2 L mmol/L
(3.5-5.1)
Total Bilirubin 1.5 H mg/dl
(0.2-1.3)
Alkaline Phosphatase 228 H U/L
(38-126)
Ur Occult Blood Reflex 1+ A
(Negative)
Leukocyte Esterase Rfl 2+ A
(Negative)
Urine WBC (Reflex) >100 A /HPF
(0-5)
Urine Bacteria (Reflex) Few A
(Negative)
05/06/24 10:22
05/06/24 10:22
Vital Signs
Initial and Last Documented VS:
Initial Vital Signs
Temp Pulse Resp BP Pulse Ox
100.1 F 111 16 171/108 99
05/06/24 09:24 05/06/24 09:24 05/06/24 09:24 05/06/24 09:24 05/06/24 09:24
Last Documented Vital Signs
Temp Pulse Resp BP Pulse Ox
100.1 F 111 18 171/108 99
05/06/24 09:24 05/06/24 09:24 05/06/24 11:33 05/06/24 09:24 05/06/24 09:24
MDM/Problems Addressed
Differential Diagnosis Includes:
UTI retention prostatitis upper tract infection urinary stone
MDM/Problems Addressed:
Trouble urinating
Chronic conditions affecting care: Previous abdomnial surgery and Cancer
Acute Exacerbation and/or Progression of Chronic Illness: Previous abdomnial surgery and Cancer
*Radiology
Radiology exam reviewed: preliminary read by ED provider
*Pulse Oximetry
Patient hypoxic: no
*Critical Care Note
Total Time (30-74mins, 75-104mins- exclusive of procedures): Not Applicable
Data Reviewed
Review of Other/Old Records Reveals: Labs, Records and Radiology Studies
Source: patient, records and family
Update Note
Update Note:
Update labs noted ultrasound noted urine noted culture pending will start on ceftriaxone
ED Attending Note
-
Portions of this chart may have been created with voice recognition software.� Occasional wrong word or��sound alike� substitutions may have occurred due to the inherent limitations of voice recognition software.
Discharge Plan
Departure
Prescriptions:
No Action
atorvastatin 80 mg tablet
80 mg PO QPM
Hold Instructions: Resume on 04/15/24. Please speak with your primary care doctor about when to resume. It is on hold due to elevated liver enzymes.
lisinopril 20 mg tablet
20 mg PO BID
aspirin 81 mg Tablet,Delayed Release (Dr/Ec)
81 mg PO DAILY
metoprolol tartrate 50 mg tablet
50 mg PO BID
polyethylene glycol 3350 [HealthyLax] 17 gram Powder In Packet
17 g PO BID Qty: 0 0RF
amoxicillin-pot clavulanate 875-125 mg Tablet
1 tab PO Q12 Qty: 3 0RF
Referrals:
David Mena MD [Family Provider] -
Interventions
Interventions:
*Risk Screen - Suicide Last Done: 05/06/24 09:24
*General Assessment Last Done: 05/06/24 09:24
*Neglect/Abuse Screening Last Done: 05/06/24 09:24
Discharge Date and Time
Print Language: ARMENIAN
[2024-05-06 10:37] LABS: % Basophils 0.6 % (0-2); % Eosinophils 1.2 % (0-6); % Immature Granulocytes 0.5 % (0-0.5); % Lymphocytes 15.5 % (20.5-51.1); % Monocytes 15.2 % (1.7-9.3); Absolute Eosinophils 0.1 10^3/uL (0-0.7); Absolute Neutrophils 4.4 10^3/uL (1.4-6.5); Hematocrit 37.9 % (39.0-52.0); Hemoglobin 13.3 g/dL (13.0-18.0); Mean Corp Hgb Conc. 35.1 g/dL (33.0-37.0); Mean Corpuscular Hgb 30.4 pg (27.0-31.0); Mean Corpuscular Volume 86.7 fL (80.0-94.0); Mean Platelet Volume 10.4 fL (7.4-10.4); Nucleated Red Blood Cells % 0 % (-); Platelet Count 189 10^3/uL (130-400); Red Blood Cell Count 4.37 10^6/uL (4.70-6.10); Red Cell Dist. Width 15.1 % (11.5-14.5); White Blood Cell Count 6.6 10^3/uL (4.8-10.8)
[2024-05-06 10:40] LABS: Urine Albumin Negative (Neg - Trace); Urine Bilirubin Negative (Negative); Urine Character Clear (Clear); Urine Color Yellow; Urine Glucose Negative (Negative); Urine Ketone Negative (Negative); Urine Leukocyte 2+ (Negative); Urine Nitrite Negative (Negative); Urine Occult Blood 1+ (Negative); Urine Urobilinogen Negative (Neg - 1+)
[2024-05-06 10:51] LABS: Urine Red Blood Cell 0-2 /HPF (0-2); Urine White Cell >100 /HPF (0-5)
[2024-05-06 10:51] LABS: Lactic Acid 1.4 mmol/L (0.7-2.0)
[2024-05-06 10:52] LABS: ALT (SGPT) 23 U/L (0-50); AST (SGOT) 34 U/L (17-59); Alkaline Phosphatase 228 U/L (38-126); Blood Urea Nitrogen 15 mg/dl (9-20); Calcium 9.8 mg/dl (8.4-10.2); Carbon Dioxide 30 mmol/L (22-30); Chloride 100 mmol/L (98-107); Estimated Creatinine Clearance 77 ml/min; Glucose 93 mg/dl (70-99); Potassium 3.2 mmol/L (3.5-5.1); Sodium 139 mmol/L (135-145); Total Bilirubin 1.5 mg/dl (0.2-1.3); Total Protein 6.4 g/dl (6.3-8.2); eGFR > 60.00
[2024-05-06 10:52] LABS: Urine Bacteria Few (Negative)
[2024-05-06] MEDS: TYLENOL 1000 MG PO (11:10)
[2024-05-06] MEDS: NSS 1000 IV (11:10)
[2024-05-06 12:30] VITALS: BP 177/116
[2024-05-06] MEDS: ROCEPHIN 1000 MG IV (12:40)
[2024-05-06] MEDS: Pyridium 200 MG PO (12:41)
[2024-05-06] MEDS: KCL 40 MEQ PO (12:41)
[2024-05-06 13:01] VITALS: BP 196/108
[2024-05-06 13:03] VITALS: BP 172/107
[2024-05-06 13:19] VITALS: BP 178/117
== END 2024-05-06 13:30 | disposition home or self-care (01) ==
LOC: EMR 09:10
PROVIDERS: EMERGENCY PHYSICIAN Emergency Medicine; FAMILY PHYSICIAN Family Medicine
DX: R30.0 Dysuria (principal); R35.0 Frequency of micturition; R32 Unspecified urinary incontinence; R50.9 Fever, unspecified; I48.91 Unspecified atrial fibrillation; I10 Essential (primary) hypertension; C80.1 Malignant (primary) neoplasm, unspecified; E78.5 Hyperlipidemia, unspecified; Z98.890 Other specified postprocedural states; Z96.652 Presence of left artificial knee joint; Z87.891 Personal history of nicotine dependence; Z86.73 Personal history of transient ischemic attack (TIA), and cerebral infarction without residual deficits; Z90.49 Acquired absence of other specified parts of digestive tract
CPT/HCPCS: 99284; 96374; 51798; 76770; 80053; 81003; 81015; 83605; 85025; 87040; 87086

== ENCOUNTER → 2024-05-10 10:52 | Outpatient (REF) | payer OTHER, SELFPAY | LOC: RAD 10:52 | PROVIDERS: ATTENDING PHYSICIAN Surgery Vascular Surgery; FAMILY PHYSICIAN Family Medicine | DX: I73.9 Peripheral vascular disease, unspecified (principal) | CPT/HCPCS: 93922; 93925 ==

== ENCOUNTER 2025-04-07 18:47 | Emergency (ER) | payer OTHER, SELFPAY ==
[2025-04-07 18:51] VITALS: BP 147/86
[2025-04-07 18:54] VITALS: BMI 28.0
[2025-04-07 19:00] VITALS: BP 131/92
[2025-04-07 19:11] LABS: % Basophils 0.4 % (0-2); % Eosinophils 0.2 % (0-6); % Immature Granulocytes 0.3 % (0-0.5); % Lymphocytes 5.3 % (20.5-51.1); % Monocytes 9.4 % (1.7-9.3); % Neutrophils 84.4 % (42.2-75.2); Absolute Lymphocytes 0.5 10^3/uL (1.2-3.4); Absolute Monocytes 0.9 10^3/uL (0.1-0.6); Absolute Neutrophils 7.7 10^3/uL (1.4-6.5); Hemoglobin 12.1 g/dL (13.0-18.0); Mean Corp Hgb Conc. 34.6 g/dL (33.0-37.0); Mean Corpuscular Hgb 33.2 pg (27.0-31.0); Mean Corpuscular Volume 96.2 fL (80.0-94.0); Mean Platelet Volume 10.3 fL (7.4-10.4); Nucleated Red Blood Cells % 0 % (-); Platelet Count 168 10^3/uL (130-400); Red Blood Cell Count 3.64 10^6/uL (4.70-6.10); White Blood Cell Count 9.1 10^3/uL (4.8-10.8)
[2025-04-07 19:22] LABS: ALT (SGPT) 24 U/L (0-50); AST (SGOT) 26 U/L (17-59); Albumin 4.8 g/dl (3.5-5.0); Alkaline Phosphatase 148 U/L (38-126); Blood Urea Nitrogen 23 mg/dl (9-20); Calcium 9.5 mg/dl (8.4-10.2); Carbon Dioxide 22 mmol/L (22-30); Chloride 109 mmol/L (98-107); Estimated Creatinine Clearance 61 ml/min; Glucose 96 mg/dl (70-99); Potassium 4.5 mmol/L (3.5-5.1); Sodium 139 mmol/L (135-145); Total Bilirubin 2.7 mg/dl (0.2-1.3); eGFR > 60.00
[2025-04-07 19:33] LABS: COVID-19 Antigen Positive (Negative)
[2025-04-07 20:00] VITALS: BP 144/86
[2025-04-07] MEDS: NSS 1000 IV (20:02)
[2025-04-07 21:16] VITALS: BP 135/93
[2025-04-07 22:00] VITALS: BP 146/93
--- NOTE | 2025-04-07 22:16 | ED.GENMED ---
History of Present Illness
General
Chief Complaint: Cold/Flu/URI Symptoms
Source: patient and spouse
Exam Limitations: none
Time Seen by Provider: 04/07/25 22:07
Nursing documentation reviewed up to this point in time: agreed with
History of Present Illness
History of Present Illness:
80-year-old male less of the day cough congestion fever weakness returned from [facility] with COVID patient apparently caught it, is immunized never actually had COVID previously he has A-fib he had a Watchman his lymphedema eating and drinking
okay but felt weak like he may pass out earlier
Past History
Past History
ED Past Medical History: Arrthythmia and Cancer
ED Past Surgical History: Cardiac, Cholecystectomy and Orthopedic
Social History
Tobacco: Non-smoker
Alcohol: None
Drug: None
Personal:
Living: with family
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
Review of Systems
Review of Systems
All Other Systems: Not applicable
Constitutional: Reports fever and fatigue
Respiratory: Reports cough and trouble breathing
Cardiac: Reports no symptoms
ABD/GI: Reports no symptoms
: Reports no symptoms
Neurological: Reports weakness
Psychiatric: Reports no symptoms
Phy Exam
Physical Exam
Physical Exam:
Physical Exam
General: no apparent distress, not acutely ill
Neck: No jaundice
Heart: Irregular
Lungs: Rhonchi bilateral
Abdomen: non tender
Neuro: alert and oriented. no focal neurological deficits
Skin: no rash
Psychiatric: well kept. interactive and cooperative
Extremities: no edema.
Course
Orders/Labs/Results
Orders:
Orders
04/07/25 18:53
Electrocardiogram (*1) Urgent
Reason for Study: Fatigue / Weakness
EKG- Treatment ONCE
04/07/25 18:59
COVID-19 Antigen Urgent
Source: Nasal Swab
Complete Blood Count/With Diff Urgent
Comprehensive Metabolic Panel Urgent
Influenza A+B Rapid Molecular Urgent
KASHIF Source: Nasal Swab
Specimen Description:
04/07/25 19:59
0.9% Sodium Chloride 1000 ml [Nss] 1,000 ml IV BOLUS
04/07/25 20:32
CR Chest - 2 Views Urgent
Comment:
Reason For Exam: cough
04/07/25 22:13
Acetaminophen [Tylenol] 650 mg PO NOW STA
Dexamethasone Sod Phosphate [Decadron] 10 mg IV NOW STA
Ipratropium/Albuterol Sulfate [Duoneb] 3 ml INH R NOW STA
Abnormal Lab Results
04/07/25
18:59
RBC 3.64 L 10^6/uL
(4.70-6.10)
Hgb 12.1 L g/dL
(13.0-18.0)
Hct 35.0 L %
(39.0-52.0)
MCV 96.2 H fL
(80.0-94.0)
MCH 33.2 H pg
(27.0-31.0)
Absolute Neuts (auto) 7.7 H 10^3/uL
(1.4-6.5)
Absolute Lymphs (auto) 0.5 L 10^3/uL
(1.2-3.4)
Absolute Monos (auto) 0.9 H 10^3/uL
(0.1-0.6)
Neutrophils % 84.4 H %
(42.2-75.2)
Lymphocytes % 5.3 L %
(20.5-51.1)
Monocytes % 9.4 H %
(1.7-9.3)
Chloride 109 H mmol/L
(98-107)
BUN 23 H mg/dl
(9-20)
Total Bilirubin 2.7 H mg/dl
(0.2-1.3)
Alkaline Phosphatase 148 H U/L
(38-126)
SARS-CoV-2 Antigen Positive A
(Negative)
04/07/25 18:59
04/07/25 18:59
Vital Signs
Initial and Last Documented VS:
Initial Vital Signs
Temp Pulse Resp Pulse Ox
99.0 F 109 20 98
04/07/25 18:50 04/07/25 18:50 04/07/25 18:50 04/07/25 18:50
Last Documented Vital Signs
Temp Pulse Resp BP Pulse Ox
99.0 F 103 21 146/93 96
04/07/25 18:50 04/07/25 22:00 04/07/25 22:00 04/07/25 22:00 04/07/25 22:00
MDM/Problems Addressed
Differential Diagnosis Includes:
COVID pneumonia bronchitis dehydration
MDM/Problems Addressed:
Cough
Chronic conditions affecting care: HTN, Arrhythmia and COPD
Acute Exacerbation and/or Progression of Chronic Illness: HTN and COPD
*Radiology
Radiology exam reviewed: radiology read reviewed
*Pulse Oximetry
Patient hypoxic: no
*EKG
Interpreted by ED Provider?: Yes
Interpretation: normal
Comparison EKG: no comparison EKG present
Heart Rate: 78
Rate: normal
Rhythm: sinus
Ischemia: non-specific ST changes
*[employer] Interpretation
Rate: normal
Interpretation: normal
Heart Rate: 78
Rhythm: sinus
*Critical Care Note
Total Time (30-74mins, 75-104mins- exclusive of procedures): Not Applicable
Update Note
Update Note:
10:50 PM update patient is sitting upright ambulate with a walker at his baseline looks fairly well compensated stable for discharge
ED Attending Note
-
Portions of this chart may have been created with voice recognition software.� Occasional wrong word or��sound alike� substitutions may have occurred due to the inherent limitations of voice recognition software.
Discharge Plan
Departure
Patient Disposition: Home (Routine Discharge)
Date of Disposition: 04/07/25
Time of Disposition: 22:50
Patient with high blood pressure during this ER visit?: No
Condition: Good
Discharge Problem:
COVID-19
Instructions: Viral Upper Respiratory Infection, Adult (DC), COVID-19 - ED discharge instructions
Prescriptions:
New
albuterol sulfate [Ventolin HFA] 90 mcg/actuation HFA aerosol inhaler
2 puff inhalation Q6H PRN (Reason: shortness of breath or wheezing) Qty: 8.5 0RF
No Action
atorvastatin 80 mg tablet
80 mg PO QPM
lisinopril 20 mg tablet
20 mg PO BID
aspirin 81 mg Tablet,Delayed Release (Dr/Ec)
81 mg PO DAILY
labetalol 200 mg Tablet
400 mg PO BID
amlodipine 2.5 mg Tablet
2.5 mg PO DAILY
spironolactone 25 mg Tablet
25 mg PO DAILY
zolpidem 5 mg Tablet
5 mg PO HS PRN (Reason: sleep)
furosemide 20 mg Tablet
20 mg PO Q OTHER DAY
Rx Instructions:
Mon, Wed, Fri
Referrals:
UNKNOWN - PT DOES,NOT KNOW [Family Provider]
Activity Restrictions/Additional Instructions:
Drink plenty of fluids, Tylenol as needed for fever or bodyaches
Albuterol 2 puffs every 4-6 hours as needed for cough
Return to the ER if worsening symptoms
Interventions
Interventions:
*Risk Screen - Suicide Last Done: 04/07/25 18:51
*General Assessment Last Done: 04/07/25 18:51
*Neglect/Abuse Screening Last Done: 04/07/25 18:51
*ED- Fall Risk Assessment Last Done: 04/07/25 18:51
*ED COVID-19 Vaccine History Last Done: 04/07/25 18:51
ED- Pulmonary Assessment Last Done: 04/07/25 19:11
Discharge Date and Time
Print Language: POLISH
[2025-04-07] MEDS: DUONEB 3 ML INH (22:17)
[2025-04-07] MEDS: DECADRON 10 MG IV (22:17)
[2025-04-07] MEDS: TYLENOL 650 MG PO (22:18)
[2025-04-07 23:00] VITALS: BP 118/82
== END 2025-04-07 23:13 | disposition home or self-care (01) ==
LOC: EMR 18:47
PROVIDERS: Student in an Organized Health Care Education/Training Program; EMERGENCY PHYSICIAN Emergency Medicine
DX: R05.9 Cough, unspecified (principal); R50.9 Fever, unspecified; R53.1 Weakness; I48.91 Unspecified atrial fibrillation; I10 Essential (primary) hypertension; J44.9 Chronic obstructive pulmonary disease, unspecified; I89.0 Lymphedema, not elsewhere classified; Z90.49 Acquired absence of other specified parts of digestive tract
CPT/HCPCS: 99283; 94640; 96374; 71046; 80053; 85025; 87502; 87811; 93005